=== PATIENT | female | born 1945 | race American Indian/Alaskan Native ===

== ENCOUNTER 2021-09-15 16:31 | Emergency (ER) | payer MEDICARE, MEDICAID ==
[2021-09-15] MEDS ORDERED: levETIRAcetam 1000 MG/NS 0.75% 1,000 MG/100 ML BAG IV ONE (17:06)
--- NOTE | 2021-09-15 17:11 | Emergency Department Report ---
ED Seizure HPI - General Chief Complaint: Seizure Stated Complaint: SEIZURE Time Seen by Provider: 09/15/21 16:52 Source: EMS Mode of arrival: Stretcher Limitations: Altered Mental Status - History of Present Illness Initial Comments: 76-year-old female with a past medical history of dementia, hypertension, seizures presents to the hospital after having multiple seizures prior to arrival. Granddaughter at the bedside states that patient had 3 seizures total. She had 2 at about 11:30 AM and another seizure at 3:30 PM. She states that patient is currently at her baseline mental status. She is oriented to person only. She denies pain. She denies tongue biting. She is compliant with her Vimpat and Keppra. Pt has frequent seizures Patient takes multiple medications including Keppra 500 mg and Vimpat [address] Laurent Pickering Neurologist: DR Pack - Related Data Previous Rx's Medication Instructions Recorded Last Taken Type Acetaminophen [Acetaminophen 650 mg [place] Q6H PRN #30 supp.rect 01/28/17 Unknown Rx SUPPOS] Famotidine [Pepcid] 20 mg PO DAILY tablet 01/28/17 Unknown Rx Losartan [Cozaar] 100 mg PO QDAY tablet 01/28/17 Unknown Rx metroNIDAZOLE [Flagyl TAB] 500 mg PO Q8HR tablet 01/28/17 Unknown Rx Ertapenem [INVanz] 1 gm IV QDAY 10 Days vial 01/29/17 Unknown Rx Phenytoin [Dilantin] 100 mg PO QAM #30 capsule 01/29/17 Unknown Rx Phenytoin [Dilantin] 200 mg PO QHS #30 capsule 01/29/17 Unknown Rx Alendronate Sodium [Fosamax] 70 mg PO QWEEK #4 tablet 02/02/17 Unknown Rx Aspirin [Aspirin BABY CHEW TAB] 81 mg PO DAILY #30 tab.chew 02/02/17 Unknown Rx Lisinopril/Hydrochlorothiazide 20 mg PO DAILY #30 tablet 02/02/17 Unknown Rx [Zestoretic 20-12.5 mg] Mirtazapine [Remeron] 1 tab PO HS #30 tablet 02/02/17 Unknown Rx donepeziL [Aricept] 10 mg PO QHS #30 tablet 02/02/17 Unknown Rx Allergies Allergy/AdvReac Type Severity Reaction Status Date / Time No Known Allergies Allergy Verified 01/14/16 10:24 ED Review of Systems ROS: Stated complaint: SEIZURE Other details as noted in HPI Comment: All other systems reviewed and negative ED Past Medical Hx - Past Medical History Previous Medical History?: Yes Hx Hypertension: Yes Hx Seizures: Yes Hx Dementia: Yes - Social History Smoking Status: Former Smoker - Medications Home Medications: Home Medications Medication Instructions Recorded Confirmed Last Taken Type Acetaminophen [Acetaminophen 650 mg [place] Q6H PRN #30 supp.rect 01/28/17 Unknown Rx SUPPOS] Famotidine [Pepcid] 20 mg PO DAILY tablet 01/28/17 Unknown Rx Losartan [Cozaar] 100 mg PO QDAY tablet 01/28/17 Unknown Rx metroNIDAZOLE [Flagyl TAB] 500 mg PO Q8HR tablet 01/28/17 Unknown Rx Ertapenem [INVanz] 1 gm IV QDAY 10 Days vial 01/29/17 Unknown Rx Phenytoin [Dilantin] 100 mg PO QAM #30 capsule 01/29/17 Unknown Rx Phenytoin [Dilantin] 200 mg PO QHS #30 capsule 01/29/17 Unknown Rx Alendronate Sodium [Fosamax] 70 mg PO QWEEK #4 tablet 02/02/17 Unknown Rx Aspirin [Aspirin BABY CHEW TAB] 81 mg PO DAILY #30 tab.chew 02/02/17 Unknown Rx Lisinopril/Hydrochlorothiazide 20 mg PO DAILY #30 tablet 02/02/17 Unknown Rx [Zestoretic 20-12.5 mg] Mirtazapine [Remeron] 1 tab PO HS #30 tablet 02/02/17 Unknown Rx donepeziL [Aricept] 10 mg PO QHS #30 tablet 02/02/17 Unknown Rx ED Physical Exam - General Limitations: Altered Mental Status - Other Other exam information: General: No acute distress Head: Atraumatic Eyes: normal appearance ENT: Moist mucous membranes Neck: Normal appearance, no midline tenderness Chest: Clear to auscultation bilaterally CV: Regular rate and rhythm Abdomen: Soft, normal bowel sounds, nontender, nondistended, no rebound or guarding Back: Normal inspection Extremity: Normal inspection, full range of motion Neuro: Alert O x 1, speech clear, equal handgrip. Equal leg strength Psych: Appropriate behavior Skin: No rash ED Course Vital Signs 09/15/21 09/15/21 09/15/21 16:35 16:59 17:00 Temperature 98.7 F Pulse Rate 76 78 75 Respiratory 16 21 Rate Blood Pressure 165/78 Blood Pressure 145/79 [Left] O2 Sat by Pulse 98 95 97 Oximetry 09/15/21 09/15/21 09/15/21 17:15 17:31 17:45 Temperature Pulse Rate 75 80 78 Respiratory 13 20 19 Rate Blood Pressure 165/78 165/78 165/78 Blood Pressure [Left] O2 Sat by Pulse 96 97 99 Oximetry 09/15/21 09/15/21 09/15/21 18:39 18:40 18:41 Temperature Pulse Rate 71 70 Respiratory 20 17 Rate Blood Pressure 151/63 Blood Pressure [Left] O2 Sat by Pulse 98 98 99 Oximetry 09/15/21 19:20 Temperature 98.4 F Pulse Rate 67 Respiratory 13 Rate Blood Pressure Blood Pressure 134/67 [Left] O2 Sat by Pulse 100 Oximetry ED Medical Decision Making - Lab Data Result diagrams: 09/15/21 17:20 09/15/21 17:20 Lab Results 09/15/21 09/15/21 09/15/21 Range/Units 17:20 17:20 18:09 WBC 5.0 (4.5-11.0) K/mm3 RBC 4.15 (3.65-5.03) M/mm3 Hgb 12.4 (10.1-14.3) gm/dl Hct 39.0 (30.3-42.9) % MCV 94 (79-97) fl MCH 30 (28-32) pg MCHC 32 (30-34) % RDW 13.2 (13.2-15.2) % Plt Count 273 (140-440) K/mm3 Lymph % (Auto) 21.4 (13.4-35.0) % [place] % (Auto) 8.2 H (0.0-7.3) % Eos % (Auto) 0.7 (0.0-4.3) % Baso % (Auto) 0.3 (0.0-1.8) % Lymph # (Auto) 1.1 L (1.2-5.4) K/mm3 [place] # (Auto) 0.4 (0.0-0.8) K/mm3 Eos # (Auto) 0.0 (0.0-0.4) K/mm3 Baso # (Auto) 0.0 (0.0-0.1) K/mm3 Seg Neutrophils % 69.4 (40.0-70.0) % Seg Neutrophils # 3.5 (1.8-7.7) K/mm3 Sodium 131 L (137-145) mmol/L Potassium 4.7 (3.6-5.0) mmol/L Chloride 92.0 L (98-107) mmol/L Carbon Dioxide 25 (22-30) mmol/L Anion Gap 19 mmol/L BUN 17 (7-17) mg/dL Creatinine 1.0 (0.6-1.2) mg/dL Estimated GFR > 60 ml/min BUN/Creatinine Ratio 17 % Glucose 110 H (65-100) mg/dL Calcium 9.8 (8.4-10.2) mg/dL Magnesium 1.90 (1.7-2.3) mg/dL - EKG Data -: EKG Interpreted by Dc EKG shows normal: sinus rhythm, intervals (QTC 425), QRS complexes (QRS duration 81), ST-T waves (No STEMI. LVH) Rate: normal - EKG Data When compared to previous EKG there are: previous EKG unavailable - Radiology Data Radiology results: report reviewed CT head/brain wo con INDICATION / CLINICAL INFORMATION: 76 years Female; dementia, multiple seizures. TECHNIQUE: Routine CT head without contrast. All CT scans at this location are performed using CT dose reduction for ALARA by means of automated exposure control. COMPARISON: The study is compared to previous CT of 01/11/2017. FINDINGS: BRAIN / INTRACRANIAL CONTENTS: There is extensive cerebral white matter disease most consistent with microvascular angiopathy. There is moderate cerebral and cerebellar atrophy with mild prominence of the ventricular system. There are foci of calcification within the basal ganglia bilaterally. There is no clear CT evidence of acute intracranial hemorrhage or significant mass effect. ORBITS: No significant abnormality of visualized orbits. SINUSES / MASTOIDS: The paranasal sinuses are pneumatized. Hypertrophic changes are noted along the visualized inferior maxillary bilaterally. CRANIOCERVICAL JUNCTION: No significant abnormality. ADDITIONAL FINDINGS: None. IMPRESSION: 1. There is microvascular angiopathy and cerebral atrophy as described without clear CT evidence of acute intracranial hemorrhage. - Medical Decision Making 76-year-old female with seizure disorder presents to the hospital after having multiple seizures today. States compliant with medication. Patient provided extra dose of Keppra 1 g while in the ED. CT head unremarkable. Labs unremarkable with exception of mild hyponatremia. Patient does take hydrochlorothiazide and has a history of lower sodium levels in the past as per medical record review. patient received 500 mL of normal saline prior to discharge. Critical Care Time: No Critical care attestation.: If time is entered above; I have spent that time in minutes in the direct care of this critically ill patient, excluding procedure time. ED Disposition Clinical Impression: Breakthrough seizure, Hyponatremia Disposition: HOME / SELF CARE / HOMELESS Is pt being admited?: No Does the pt Need Aspirin: No Condition: Stable Instructions: Epilepsy, [id number] Additional Instructions: Continue current medication as prescribed. Follow-up with your doctor or doctor/clinic provided. Return if symptoms worsen as indicated by your discharge instructions. Referrals: PRIMARY CAREMD [Primary Care Provider] - 3-5 Days ALEXANDRU PACK MD [Staff Physician] - 3-5 Days
[2021-09-15 17:38] LABS: Basophils % (Auto) 0.3 % (0.0-1.8); Eosinophils % (Auto) 0.7 % (0.0-4.3); Hemoglobin 12.4 gm/dl (10.1-14.3); Lymphocytes # (Auto) 1.1 K/mm3 (1.2-5.4); Lymphocytes % (Auto) 21.4 % (13.4-35.0); Mean Corpuscular HGB Conc 32 % (30-34); Mean Corpuscular Volume 94 fl (79-97); Monocytes # (Auto) 0.4 K/mm3 (0.0-0.8); Monocytes % (Auto) 8.2 % (0.0-7.3); Platelet Count 273 K/mm3 (140-440); Red Blood Count 4.15 M/mm3 (3.65-5.03); Red Cell Distribution Width 13.2 % (13.2-15.2)
[2021-09-15 17:50] LABS: BUN/Creatinine Ratio 17; Blood Urea Nitrogen 17 mg/dL (7-17); Calcium 9.8 mg/dL (8.4-10.2); Hemolysis Index 19
[2021-09-15] MEDS ORDERED: SODIUM CHLORIDE 0.9% 500 ML 500 ML IV ONE (18:06)
--- NOTE | 2021-09-15 19:35 | Cat Scan Report ---
CT head/brain wo con INDICATION / CLINICAL INFORMATION: 76 years Female; dementia, multiple seizures. TECHNIQUE: Routine CT head without contrast. All CT scans at this location are performed using CT dos e reduction for ALARA by means of automated exposure control. COMPARISON: The study is compared to previous CT of 01/11/2017. FINDINGS: BRAIN / INTRACRANIAL CONTENTS: There is extensive cerebral white matter disease most consistent with microvascular angiopathy. There is moderate cerebral and cerebellar atrophy with mild prominence of t he ventricular system. There are foci of calcification within the basal ganglia bilaterally. There is no clear CT evidence of acute intracranial hemorrhage or significant mass effect. ORBITS: No significant abnormality of visualized orbits. SINUSES / MASTOIDS: The paranasal sinuses are pneumatized. Hypertrophic changes are noted along the v isualized inferior maxillary bilaterally. CRANIOCERVICAL JUNCTION: No significant abnormality. ADDITIONAL FINDINGS: None. IMPRESSION: 1. There is microvascular angiopathy and cerebral atrophy as described without clear CT evidence of a cute intracranial hemorrhage. Signer Name: Laurent Marrufo MD Signed: 09/15/2021 7:30 PM Workstation Name: [id number]
[2021-09-15 21:21] VITALS: BP 153/72
--- NOTE | 2021-09-16 18:35 | Electrocardiograph Report ---
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
== END 2021-09-15 20:30 | disposition home or self-care (01) ==
LOC: ED 16:31
DX: R56.9 Unspecified convulsions (principal); E87.1 Hypo-osmolality and hyponatremia; I10 Essential (primary) hypertension; F03.90 Unspecified dementia, unspecified severity, without behavioral disturbance, psychotic disturbance, mood disturbance, and anxiety; Z87.891 Personal history of nicotine dependence
CPT/HCPCS: 36415; 70450; 80048; 83735; 85025; 93005; 96374; 99284; J1953; J7040

== ENCOUNTER 2022-02-13 21:20 | Emergency (ER) | payer MEDICARE ==
[2022-02-13 21:51] VITALS: BP 163/72
[2022-02-13] MEDS ORDERED: SODIUM CHLORIDE 0.9% 1000 ML 1,000 ML IV ONE (22:05)
[2022-02-13] MEDS ORDERED: levETIRAcetam 500 MG in DEXTROSE 5% IN WATER 100 ML IV ONE (22:05)
--- NOTE | 2022-02-13 22:34 | XRay Report ---
CHEST 1 VIEW 02/13/2022 10:16 PM INDICATION / CLINICAL INFORMATION: Dyspnea. COMPARISON: One view of the chest from 02/01/2017 FINDINGS: SUPPORT DEVICES: None. HEART / MEDIASTINUM: Calcified left hilar nodes versus left perihilar calcified granulomas are noted. No other significant abnormality. LUNGS / PLEURA: Unchanged left midlung calcified granuloma. There is probable bibasilar atelectasis. There is biapical scarring. Otherwise clear lungs. No significant pleural effusion. No pneumothorax. ADDITIONAL FINDINGS: No significant additional findings. IMPRESSION: 1. Probable mild bibasilar atelectasis without other acute findings. 2. Additional findings as above. Signer Name: Jim Novoa MD Signed: 02/13/2022 10:30 PM Workstation Name: [id number]
[2022-02-13 23:17] LABS: Basophils % (Auto) 0.2 % (0.0-1.8); Eosinophils % (Auto) 0.6 % (0.0-4.3); Hematocrit 37.2 % (30.3-42.9); Hemoglobin 12.3 gm/dl (10.1-14.3); Lymphocytes # (Auto) 1.1 K/mm3 (1.2-5.4); Lymphocytes % (Auto) 20.5 % (13.4-35.0); Mean Corpuscular HGB Conc 33 % (30-34); Mean Corpuscular Volume 93 fl (79-97); Monocytes # (Auto) 0.5 K/mm3 (0.0-0.8); Platelet Count 242 K/mm3 (140-440); Red Cell Distribution Width 13.6 % (13.2-15.2)
[2022-02-13 23:26] LABS: Alanine Aminotransferase 10 units/L (7-56); Albumin 4.3 g/dL (3.9-5); BUN/Creatinine Ratio 21; Bilirubin,Direct < 0.2 mg/dL (0-0.2); Blood Urea Nitrogen 29 mg/dL (7-17); Calcium 9.5 mg/dL (8.4-10.2); Hemolysis Index 15
--- NOTE | 2022-02-13 23:35 | Emergency Department Report ---
ED Seizure HPI - General Chief Complaint: Seizure Stated Complaint: SEIZURES Time Seen by Provider: 02/13/22 22:05 Source: patient, EMS Mode of arrival: Stretcher Limitations: No Limitations, Other - History of Present Illness Initial Comments: EMS recieved report from patient's family that patient had seizure while at home that lasted about 3 minutes. Pt alert with forgetfulness, poor historian. MD Complaint: seizure -: Gradual, hour(s) Description of Episode: loss of consciousness, tonic-clonic movement Witnessed:: Yes Trauma: No Place: home Associated Symptoms: denies: denies other symptoms, chest pain, confusion, cough - Related Data Previous Rx's Medication Instructions Recorded Last Taken Type Acetaminophen [Acetaminophen 650 mg [place] Q6H PRN #30 supp.rect 01/28/17 Unknown Rx SUPPOS] Famotidine [Pepcid] 20 mg PO DAILY tablet 01/28/17 Unknown Rx Losartan [Cozaar] 100 mg PO QDAY tablet 01/28/17 Unknown Rx metroNIDAZOLE [Flagyl TAB] 500 mg PO Q8HR tablet 01/28/17 Unknown Rx Ertapenem [INVanz] 1 gm IV QDAY 10 Days vial 01/29/17 Unknown Rx Phenytoin [Dilantin] 100 mg PO QAM #30 capsule 01/29/17 Unknown Rx Phenytoin [Dilantin] 200 mg PO QHS #30 capsule 01/29/17 Unknown Rx Alendronate Sodium [Fosamax] 70 mg PO QWEEK #4 tablet 02/02/17 Unknown Rx Aspirin [Aspirin BABY CHEW TAB] 81 mg PO DAILY #30 tab.chew 02/02/17 Unknown Rx Lisinopril/Hydrochlorothiazide 20 mg PO DAILY #30 tablet 02/02/17 Unknown Rx [Zestoretic 20-12.5 mg] Mirtazapine [Remeron] 1 tab PO HS #30 tablet 02/02/17 Unknown Rx donepeziL [Aricept] 10 mg PO QHS #30 tablet 02/02/17 Unknown Rx Allergies Allergy/AdvReac Type Severity Reaction Status Date / Time No Known Allergies Allergy Verified 11/07/15 10:24 ED Review of Systems ROS: Stated complaint: SEIZURES Other details as noted in HPI Constitutional: denies: chills, fever Eyes: denies: eye pain, eye discharge, vision change ENT: denies: ear pain, throat pain Respiratory: denies: cough, shortness of breath, wheezing Cardiovascular: denies: chest pain, palpitations Endocrine: no symptoms reported Gastrointestinal: denies: abdominal pain, nausea, diarrhea Genitourinary: denies: urgency, dysuria, discharge Musculoskeletal: denies: back pain, joint swelling, arthralgia Skin: denies: rash, lesions Neurological: denies: headache, weakness, paresthesias Psychiatric: denies: anxiety, depression Hematological/Lymphatic: denies: easy bleeding, easy bruising ED Past Medical Hx - Past Medical History Hx Hypertension: Yes Hx Seizures: Yes Hx Dementia: Yes - Social History Smoking Status: Former Smoker - Medications Home Medications: Home Medications Medication Instructions Recorded Confirmed Last Taken Type Acetaminophen [Acetaminophen 650 mg [place] Q6H PRN #30 supp.rect 01/28/17 Unknown Rx SUPPOS] Famotidine [Pepcid] 20 mg PO DAILY tablet 01/28/17 Unknown Rx Losartan [Cozaar] 100 mg PO QDAY tablet 01/28/17 Unknown Rx metroNIDAZOLE [Flagyl TAB] 500 mg PO Q8HR tablet 01/28/17 Unknown Rx Ertapenem [INVanz] 1 gm IV QDAY 10 Days vial 01/29/17 Unknown Rx Phenytoin [Dilantin] 100 mg PO QAM #30 capsule 01/29/17 Unknown Rx Phenytoin [Dilantin] 200 mg PO QHS #30 capsule 01/29/17 Unknown Rx Alendronate Sodium [Fosamax] 70 mg PO QWEEK #4 tablet 02/02/17 Unknown Rx Aspirin [Aspirin BABY CHEW TAB] 81 mg PO DAILY #30 tab.chew 02/02/17 Unknown Rx Lisinopril/Hydrochlorothiazide 20 mg PO DAILY #30 tablet 02/02/17 Unknown Rx [Zestoretic 20-12.5 mg] Mirtazapine [Remeron] 1 tab PO HS #30 tablet 02/02/17 Unknown Rx donepeziL [Aricept] 10 mg PO QHS #30 tablet 02/02/17 Unknown Rx ED Physical Exam - General Limitations: Other General appearance: alert, in no apparent distress - Head Head exam: Present: atraumatic, normocephalic - Eye Eye exam: Present: normal appearance - ENT ENT exam: Present: mucous membranes moist - Neck Neck exam: Present: normal inspection - Respiratory Respiratory exam: Present: normal lung sounds bilaterally. Absent: respiratory distress - Cardiovascular Cardiovascular Exam: Present: regular rate, normal rhythm. Absent: systolic murmur, diastolic murmur, rubs, gallop - GI/Abdominal GI/Abdominal exam: Present: soft, normal bowel sounds - Extremities Exam Extremities exam: Present: normal inspection - Back Exam Back exam: Present: normal inspection - Neurological Exam Neurological exam: Present: alert, oriented X3 - Psychiatric Psychiatric exam: Present: normal affect, normal mood - Skin Skin exam: Present: warm, dry, intact, normal color. Absent: rash ED Course Vital Signs 02/13/22 21:50 Temperature 98.9 F Pulse Rate 97 H Blood Pressure 163/72 [Left] O2 Sat by Pulse 96 Oximetry ED Medical Decision Making - Lab Data Result diagrams: 02/13/22 22:24 02/13/22 22:24 - Radiology Data Radiology results: report reviewed, image reviewed - Medical Decision Making WORK UP NEGATIVE BACK TO BASLINE , VSS NO DISTRESS Critical care attestation.: If time is entered above; I have spent that time in minutes in the direct care of this critically ill patient, excluding procedure time. ED Disposition Clinical Impression: Seizure disorder Disposition: 01 HOME / SELF CARE / HOMELESS Is pt being admited?: No Does the pt Need Aspirin: No Condition: Stable Instructions: Epilepsy, [id number]
--- NOTE | 2022-02-15 10:41 | Electrocardiograph Report ---
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
== END 2022-02-14 01:21 | disposition home or self-care (01) ==
LOC: ED 21:20
DX: G40.909 Epilepsy, unspecified, not intractable, without status epilepticus (principal); I10 Essential (primary) hypertension; Z87.891 Personal history of nicotine dependence; Z79.899 Other long term (current) drug therapy
CPT/HCPCS: 36415; 71045; 80053; 80076; 85025; 93005; 96361; 96374; 99284; J1953; J7030; J7060

== ENCOUNTER 2022-03-12 16:52 | Inpatient (IN) | payer MEDICAID, MEDICARE ==
[2022-03-12] MEDS ORDERED: SODIUM CHLORIDE 0.9% 1000 ML 1,000 ML IV ONE (17:20)
[2022-03-12] MEDS ORDERED: PIPERACIL/TAZOBACTA 4.5/NS 100 4.5 GM/100 ML VIAL IV ONE (17:20)
[2022-03-12] MEDS ORDERED: ACETAMINOPHEN 325 MG TAB PO ONE (17:39)
--- NOTE | 2022-03-12 17:51 | XRay Report ---
CHEST 1 VIEW INDICATION: weakness. COMPARISON: 02/13/2022 FINDINGS: SUPPORT DEVICES: None. HEART: Within normal limits. LUNGS/PLEURA: Aside from a couple scattered calcified granulomata, the lungs are clear. ADDITIONAL FINDINGS: None. IMPRESSION: 1. No acute findings. Signer Name: Sherman Mitchell MD Signed: 03/12/2022 5:46 PM Workstation Name: [id number]
[2022-03-12 18:03] LABS: Basophils % (Auto) 0.1 % (0.0-1.8); Eosinophils % (Auto) 0.1 % (0.0-4.3); Hematocrit 37.9 % (30.3-42.9); Hemoglobin 12.7 gm/dl (10.1-14.3); Lymphocytes # (Auto) 0.6 K/mm3 (1.2-5.4); Lymphocytes % (Auto) 8.8 % (13.4-35.0); Mean Corpuscular HGB Conc 34 % (30-34); Mean Corpuscular Volume 94 fl (79-97); Monocytes # (Auto) 0.6 K/mm3 (0.0-0.8); Monocytes % (Auto) 9.1 % (0.0-7.3); Platelet Count 238 K/mm3 (140-440); Red Blood Count 4.05 M/mm3 (3.65-5.03); Red Cell Distribution Width 13.6 % (13.2-15.2)
[2022-03-12] MEDS ORDERED: ACETAMINOPHEN 650 MG RECT SUPP PR ONE (18:05)
--- NOTE | 2022-03-12 18:46 | Cat Scan Report ---
CT head/brain wo con INDICATION / CLINICAL INFORMATION: 77 years Female; generalized weakness. TECHNIQUE: Routine CT head without contrast. All CT scans at this location are performed using CT dos e reduction for ALARA by means of automated exposure control. COMPARISON: None. FINDINGS: BRAIN / INTRACRANIAL CONTENTS: No acute hemorrhage, mass effect, midline shift, hydrocephalus, or acu te, large territorial infarct. [id number], diffuse cerebral and cerebellar atrophy. There are [id number] areas of decreased attenuation in the white matter of the cerebral hemisph eres, as well as the gangliocapsular regions. These are nonspecific findings and may be related to mi croangiopathy (hypertension, diabetes, atherosclerosis), given the patient's age. It might be difficu lt to evaluate for small areas of ischemia without diffusion imaging by MRI. CRANIOCERVICAL JUNCTION: No significant abnormality. ORBITS: No significant abnormality of visualized orbits. SINUSES / MASTOIDS: Mild to moderate mucosal thickening seen in the mastoids. ADDITIONAL FINDINGS: Poor dentition noted. Cate maxillare noted bilaterally along the posterior molar s. Probable radicular cyst associated with an incisor root along the maxillary alveolar ridge on the lef t. Atherosclerotic disease is seen in the anterior and posterior circulation. Bilateral temporal mandibular joint disease noted. IMPRESSION: 1. No focal mass, hemorrhage, hydrocephalus, or acute, large territorial infarct. Signer Name: Jeb Sanz MD, III Signed: 03/12/2022 6:42 PM Workstation Name: [id number]
[2022-03-12 19:04] LABS: Albumin 4.2 g/dL (3.9-5); BUN/Creatinine Ratio 17; Blood Urea Nitrogen 22 mg/dL (7-17); Calcium 9.5 mg/dL (8.4-10.2); Hemolysis Index 53
--- NOTE | 2022-03-12 19:09 | Emergency Department Report ---
ED General Adult HPI - General Chief complaint: Weakness Stated complaint: WEAKNESS/VOMITING Time Seen by Provider: 03/12/22 17:18 Source: EMS Mode of arrival: Stretcher Limitations: No Limitations - History of Present Illness Initial comments: patient presents from [place] 2/ fever and generalized weakness. Patient with hx of dementia and is AAO x 2 (person and place; @ baseline). Patient is not a reliable historian. Patient denies any WILHELM, CP, SOB, numbness, weakness, abd pain, back pain, dysuria, frequency, urgency. Severity scale (0 -10): 0 - Related Data Previous Rx's Medication Instructions Recorded Last Taken Type Acetaminophen [Acetaminophen 650 mg MS Q6H PRN #30 supp.rect 01/28/17 Unknown Rx SUPPOS] Famotidine [Pepcid] 20 mg PO DAILY tablet 01/28/17 Unknown Rx Losartan [Cozaar] 100 mg PO QDAY tablet 01/28/17 Unknown Rx metroNIDAZOLE [Flagyl TAB] 500 mg PO Q8HR tablet 01/28/17 Unknown Rx Ertapenem [INVanz] 1 gm IV QDAY 10 Days vial 01/29/17 Unknown Rx Phenytoin [Dilantin] 100 mg PO QAM #30 capsule 01/29/17 Unknown Rx Phenytoin [Dilantin] 200 mg PO QHS #30 capsule 01/29/17 Unknown Rx Alendronate Sodium [Fosamax] 70 mg PO QWEEK #4 tablet 02/02/17 Unknown Rx Aspirin [Aspirin BABY CHEW TAB] 81 mg PO DAILY #30 tab.chew 02/02/17 Unknown Rx Lisinopril/Hydrochlorothiazide 20 mg PO DAILY #30 tablet 02/02/17 Unknown Rx [Zestoretic 20-12.5 mg] Mirtazapine [Remeron] 1 tab PO HS #30 tablet 02/02/17 Unknown Rx donepeziL [Aricept] 10 mg PO QHS #30 tablet 02/02/17 Unknown Rx Allergies Allergy/AdvReac Type Severity Reaction Status Date / Time No Known Allergies Allergy Verified 11/07/15 10:24 ED Review of Systems ROS: Stated complaint: WEAKNESS/VOMITING Other details as noted in HPI Comment: All other systems reviewed and negative Constitutional: fever. denies: chills ED Past Medical Hx - Past Medical History Previous Medical History?: Yes Hx Hypertension: Yes Hx Seizures: Yes Hx Dementia: Yes - Social History Smoking Status: Never Smoker - Medications Home Medications: Home Medications Medication Instructions Recorded Confirmed Last Taken Type Acetaminophen [Acetaminophen 650 mg MS Q6H PRN #30 supp.rect 01/28/17 Unknown Rx SUPPOS] Famotidine [Pepcid] 20 mg PO DAILY tablet 01/28/17 Unknown Rx Losartan [Cozaar] 100 mg PO QDAY tablet 01/28/17 Unknown Rx metroNIDAZOLE [Flagyl TAB] 500 mg PO Q8HR tablet 01/28/17 Unknown Rx Ertapenem [INVanz] 1 gm IV QDAY 10 Days vial 01/29/17 Unknown Rx Phenytoin [Dilantin] 100 mg PO QAM #30 capsule 01/29/17 Unknown Rx Phenytoin [Dilantin] 200 mg PO QHS #30 capsule 01/29/17 Unknown Rx Alendronate Sodium [Fosamax] 70 mg PO QWEEK #4 tablet 02/02/17 Unknown Rx Aspirin [Aspirin BABY CHEW TAB] 81 mg PO DAILY #30 tab.chew 02/02/17 Unknown Rx Lisinopril/Hydrochlorothiazide 20 mg PO DAILY #30 tablet 02/02/17 Unknown Rx [Zestoretic 20-12.5 mg] Mirtazapine [Remeron] 1 tab PO HS #30 tablet 02/02/17 Unknown Rx donepeziL [Aricept] 10 mg PO QHS #30 tablet 02/02/17 Unknown Rx ED Physical Exam - General Limitations: No Limitations General appearance: alert, in no apparent distress - Head Head exam: Present: atraumatic, normocephalic - Eye Eye exam: Present: PERRL, EOMI - ENT ENT exam: Present: mucous membranes moist, other (airway patent) - Neck Neck exam: Present: other (supple; no JVD) - Respiratory Respiratory exam: Present: other (good air entry, nml I:E, CTAB, no use of ISMA) - Cardiovascular Cardiovascular Exam: Present: regular rate. Absent: rubs, gallop - GI/Abdominal GI/Abdominal exam: Present: soft, normal bowel sounds. Absent: distended, tenderness - Extremities Exam Extremities exam: Present: full ROM. Absent: tenderness - Back Exam Back exam: Present: full ROM. Absent: tenderness - Neurological Exam Neurological exam: Present: alert, CN II-XII intact, other (GCS 14/15 ([id number])). Absent: motor sensory deficit - Skin Skin exam: Present: warm, normal color ED Course Vital Signs 03/12/22 03/12/22 03/12/22 16:57 16:59 17:18 Temperature 100.4 F H Pulse Rate 104 H 105 H Respiratory 17 18 Rate Blood Pressure 165/72 Blood Pressure 142/74 [Right] O2 Sat by Pulse 97 99 Oximetry ED Medical Decision Making - Lab Data Result diagrams: 03/12/22 17:34 03/12/22 17:34 Laboratory Tests 03/12/22 03/12/22 03/12/22 17:34 17:34 17:34 WBC 6.8 RBC 4.05 Hgb 12.7 Hct 37.9 MCV 94 MCH 31 MCHC 34 RDW 13.6 Plt Count 238 Lymph % (Auto) 8.8 L [place] % (Auto) 9.1 H Eos % (Auto) 0.1 Baso % (Auto) 0.1 Lymph # (Auto) 0.6 L [place] # (Auto) 0.6 Eos # (Auto) 0.0 Baso # (Auto) 0.0 Seg Neutrophils % 81.9 H Seg Neutrophils # 5.6 Sodium 140 Potassium 4.6 Chloride 102.7 Carbon Dioxide 21 L Anion Gap 21 BUN 22 H Creatinine 1.3 H Estimated GFR 48 BUN/Creatinine Ratio 17 Glucose 115 H Lactic Acid 2.70 H* Calcium 9.5 Total Bilirubin 0.20 AST 38 ALT 15 Alkaline Phosphatase 73 Troponin T < 0.010 Total Protein 7.5 Albumin 4.2 Albumin/Globulin Ratio 1.3 Urine Color Urine Turbidity Urine pH Ur Specific [place] Urine Protein Urine Glucose (UA) Urine Ketones Urine Blood Urine Nitrite Urine Bilirubin Urine Urobilinogen Ur Leukocyte Esterase Urine WBC (Auto) Urine RBC (Auto) U Epithel Cells (Auto) Urine Yeast (Budding) 03/12/22 20:03 WBC RBC Hgb Hct MCV MCH MCHC RDW Plt Count Lymph % (Auto) [place] % (Auto) Eos % (Auto) Baso % (Auto) Lymph # (Auto) [place] # (Auto) Eos # (Auto) Baso # (Auto) Seg Neutrophils % Seg Neutrophils # Sodium Potassium Chloride Carbon Dioxide Anion Gap BUN Creatinine Estimated GFR BUN/Creatinine Ratio Glucose Lactic Acid Calcium Total Bilirubin AST ALT Alkaline Phosphatase Troponin T Total Protein Albumin Albumin/Globulin Ratio Urine Color Yellow Urine Turbidity Clear Urine pH 5.0 Ur Specific [place] 1.025 Urine Protein 100 mg/dl Urine Glucose (UA) Neg Urine Ketones Neg Urine Blood Mod Urine Nitrite Neg Urine Bilirubin Neg Urine Urobilinogen < 2.0 Ur Leukocyte Esterase Mod Urine WBC (Auto) 21.0 H Urine RBC (Auto) 17.0 U Epithel Cells (Auto) 2.0 Urine Yeast (Budding) Few CT head: no acute intracranial process CXR: no acute cardiopulmonary process EKG: HR 102, SR, nml Pr, narrow QRS, no significant ST changes in contiguous leads - Medical Decision Making Received zosyn 4.5 g IV x 1, NS 1L bolus then @ 125 m/hr, acetaminophen 650 mg MS x 1. Critical care attestation.: If time is entered above; I have spent that time in minutes in the direct care of this critically ill patient, excluding procedure time. ED Disposition Clinical Impression: Sepsis, UTI (urinary tract infection) Disposition: ADMITTED INPATIENT Is pt being admited?: Yes Does the pt Need Aspirin: No Condition: Stable Time of Disposition: 21:05 (Patient admitted to Dr. Thompson. Sign out was given by me to him.)
[2022-03-12 19:15] LABS: Alanine Aminotransferase 15 units/L (7-56)
[2022-03-12 20:42] LABS: Bilirubin,Urine NEG (Negative); Blood,Urine MOD (Negative); Color,Urine Yellow (Yellow); Urobilinogen,Urine < 2.0 mg/dL (<2.0)
[2022-03-12] MEDS ORDERED: ALBUTEROL 2.5 MG/3 ML NEBU IH PRN (21:18)
[2022-03-12] MEDS ORDERED: MORPHINE 4 MG/1 ML INJ IV PRN (21:18)
[2022-03-12] MEDS ORDERED: ACETAMINOPHEN 325 MG TAB PO PRN (21:18)
[2022-03-12] MEDS ORDERED: ONDANSETRON 4 MG/2 ML INJ IV PRN (21:18)
[2022-03-12] MEDS ORDERED: MORPHINE 2 MG/1 ML INJ IV PRN (21:18)
--- NOTE | 2022-03-12 21:27 | History and Physical Report ---
History of Present Illness Date of examination: 03/12/22 Date of admission: 03/12/22 Chief complaint: Weakness Fever Vomiting History of present illness: 77 years old female with history of hypertension, dementia seizure disorder was brought to the emergency room from al[place] because of fever and generalized weakness. Patient is not a reliable historian. Patient denies any WILHELM, CP, SOB, numbness, weakness, abd pain, back pain, dysuria, frequency, urgency. In the emergency room patient is found to have lactic acid of 2.70, WBC of 6.8, patient was found to have a UTI so going to admit the patient we will put the patient on IV fluid Zosyn 4.5 g IV every 8 hours and send the urine for culture Past History Past Medical History: hypertension, seizures, other (Dementia) Past Surgical History: No surgical history Social history: no significant social history Family history: hypertension Medications and Allergies Allergies Allergy/AdvReac Type Severity Reaction Status Date / Time No Known Allergies Allergy Verified 11/07/15 10:24 Home Medications Medication Instructions Recorded Confirmed Last Taken Type Acetaminophen [Acetaminophen 650 mg [place] Q6H PRN #30 supp.rect 01/28/17 Unknown Rx SUPPOS] Famotidine [Pepcid] 20 mg PO DAILY tablet 01/28/17 Unknown Rx Losartan [Cozaar] 100 mg PO QDAY tablet 01/28/17 Unknown Rx metroNIDAZOLE [Flagyl TAB] 500 mg PO Q8HR tablet 01/28/17 Unknown Rx Ertapenem [INVanz] 1 gm IV QDAY 10 Days vial 01/29/17 Unknown Rx Phenytoin [Dilantin] 100 mg PO QAM #30 capsule 01/29/17 Unknown Rx Phenytoin [Dilantin] 200 mg PO QHS #30 capsule 01/29/17 Unknown Rx Alendronate Sodium [Fosamax] 70 mg PO QWEEK #4 tablet 02/02/17 Unknown Rx Aspirin [Aspirin BABY CHEW TAB] 81 mg PO DAILY #30 tab.chew 02/02/17 Unknown Rx Lisinopril/Hydrochlorothiazide 20 mg PO DAILY #30 tablet 02/02/17 Unknown Rx [Zestoretic 20-12.5 mg] Mirtazapine [Remeron] 1 tab PO HS #30 tablet 02/02/17 Unknown Rx donepeziL [Aricept] 10 mg PO QHS #30 tablet 02/02/17 Unknown Rx Active Meds: Active Medications Acetaminophen (Acetaminophen 325 Mg Tab) 650 mg PO Q4H PRN PRN Reason: Pain MILD(1-3)/Fever >100.5/WILHELM Albuterol (Albuterol 2.5 Mg/3 Ml Nebu) 2.5 mg IH Q3HRT PRN PRN Reason: Shortness Of Breath Albuterol/Ipratropium (Ipratropium/Albuterol Sulfate 3 Ml Ampul.Neb) 1 ampul IH Q6HRT [facility] Aspirin (Aspirin 81 Mg Tab Chew) 81 mg PO DAILY [facility] Donepezil HCl (Donepezil 10 Mg Tab) 10 mg PO QHS [facility] Famotidine (Famotidine 20 Mg/2 Ml Inj) 20 mg IV BID [facility] Heparin Sodium (Porcine) (Heparin 5,000 Unit/1 Ml Vial) 5,000 unit SUB-Q Q12HR [facility] Dextrose/Sodium Chloride (D5/0.45ns) 1,000 mls @ 100 mls/hr IV DIRECT JAZLYN Piperacillin Sod/Tazobactam Sod (Zosyn/Ns 4.5gm/100ml) 4.5 gm in 100 mls @ 200 mls/hr IV Q8H JAZLYN; Protocol Metronidazole (Metronidazole 500 Mg Tab) 500 mg PO Q8HR JAZLYN; Protocol Miscellaneous Medication (Lisinopril/Hydrochlorothiazide [Zestoretic 20-12.5 Mg]) 20 mg PO DAILY [facility] Morphine Sulfate (Morphine 2 Mg/1 Ml Inj) 2 mg IV Q4H PRN PRN Reason: Pain, Moderate (4-6) Morphine Sulfate (Morphine 4 Mg/1 Ml Inj) 4 mg IV Q4H PRN PRN Reason: Pain , Severe (7-10) Ondansetron HCl (Ondansetron 4 Mg/2 Ml Inj) 4 mg IV Q8H PRN PRN Reason: Nausea And Vomiting Sodium Chloride (Sodium Chloride 0.9% 10 Ml Flush Syringe) 10 ml IV BID [facility] Sodium Chloride (Sodium Chloride 0.9% 10 Ml Flush Syringe) 10 ml IV PRN PRN PRN Reason: LINE FLUSH Review of Systems All systems: negative Constitutional: weakness, malaise Gastrointestinal: nausea, vomiting Exam - Constitutional Vitals: Temp Pulse Resp BP Pulse Ox 100.4 F H 105 H 18 165/72 99 03/12/22 16:59 03/12/22 17:18 03/12/22 17:18 03/12/22 17:18 03/12/22 17:18 General appearance: Present: no acute distress, well-nourished - EENT Eyes: Present: PERRL ENT: hearing intact, clear oral mucosa - Neck Neck: Present: supple, normal ROM - Respiratory Respiratory effort: normal Respiratory: bilateral: diminished - Cardiovascular Heart Sounds: Present: S1 & S2. Absent: rub, click - Extremities Extremities: pulses symmetrical, No edema Peripheral Pulses: within normal limits - Abdominal General gastrointestinal: Present: soft, non-tender, non-distended, normal bowel sounds Female genitourinary: Present: normal - Integumentary Integumentary: Present: clear, warm, dry - Musculoskeletal Musculoskeletal: gait normal, strength equal bilaterally - Neurologic Neurologic: CNII-XII intact, moves all extremities HEART Score - HEART Score Troponin: Troponin T < 0.010 ng/mL (0.00-0.029) 03/12/22 17:34 Results - Labs CBC & Chem 7: 03/12/22 17:34 03/12/22 17:34 Labs: Laboratory Last Values WBC 6.8 K/mm3 (4.5-11.0) 03/12/22 17:34 RBC 4.05 M/mm3 (3.65-5.03) 03/12/22 17:34 Hgb 12.7 gm/dl (10.1-14.3) 03/12/22 17:34 Hct 37.9 % (30.3-42.9) 03/12/22 17:34 MCV 94 fl (79-97) 03/12/22 17:34 MCH 31 pg (28-32) 03/12/22 17:34 MCHC 34 % (30-34) 03/12/22 17:34 RDW 13.6 % (13.2-15.2) 03/12/22 17:34 Plt Count 238 K/mm3 (140-440) 03/12/22 17:34 Lymph % (Auto) 8.8 % (13.4-35.0) L 03/12/22 17:34 [place] % (Auto) 9.1 % (0.0-7.3) H 03/12/22 17:34 Eos % (Auto) 0.1 % (0.0-4.3) 03/12/22 17:34 Baso % (Auto) 0.1 % (0.0-1.8) 03/12/22 17:34 Lymph # (Auto) 0.6 K/mm3 (1.2-5.4) L 03/12/22 17:34 [place] # (Auto) 0.6 K/mm3 (0.0-0.8) 03/12/22 17:34 Eos # (Auto) 0.0 K/mm3 (0.0-0.4) 03/12/22 17:34 Baso # (Auto) 0.0 K/mm3 (0.0-0.1) 03/12/22 17:34 Seg Neutrophils % 81.9 % (40.0-70.0) H 03/12/22 17:34 Seg Neutrophils # 5.6 K/mm3 (1.8-7.7) 03/12/22 17:34 Sodium 140 mmol/L (137-145) 03/12/22 17:34 Potassium 4.6 mmol/L (3.6-5.0) 03/12/22 17:34 Chloride 102.7 mmol/L (98-107) 03/12/22 17:34 Carbon Dioxide 21 mmol/L (22-30) L 03/12/22 17:34 Anion Gap 21 mmol/L 03/12/22 17:34 BUN 22 mg/dL (7-17) H 03/12/22 17:34 Creatinine 1.3 mg/dL (0.6-1.2) H 03/12/22 17:34 Estimated GFR 48 ml/min 03/12/22 17:34 BUN/Creatinine Ratio 17 % 03/12/22 17:34 Glucose 115 mg/dL (65-100) H 03/12/22 17:34 Lactic Acid 2.70 mmol/L (0.7-2.0) H* 03/12/22 17:34 Calcium 9.5 mg/dL (8.4-10.2) 03/12/22 17:34 Total Bilirubin 0.20 mg/dL (0.1-1.2) 03/12/22 17:34 AST 38 units/L (5-40) 03/12/22 17:34 ALT 15 units/L (7-56) 03/12/22 17:34 Alkaline Phosphatase 73 units/L (35-129) 03/12/22 17:34 Troponin T < 0.010 ng/mL (0.00-0.029) 03/12/22 17:34 Total Protein 7.5 g/dL (6.3-8.2) 03/12/22 17:34 Albumin 4.2 g/dL (3.9-5) 03/12/22 17:34 Albumin/Globulin Ratio 1.3 % 03/12/22 17:34 Urine Color Yellow (Yellow) 03/12/22 20:03 Urine Turbidity Clear (Clear) 03/12/22 20:03 Urine pH 5.0 (5.0-7.0) 03/12/22 20:03 Ur Specific [place] 1.025 (1.003-1.030) 03/12/22 20:03 Urine Protein 100 mg/dl mg/dL (Negative) 03/12/22 20:03 Urine Glucose (UA) Neg mg/dL (Negative) 03/12/22 20:03 Urine Ketones Neg mg/dL (Negative) 03/12/22 20:03 Urine Blood Mod (Negative) 03/12/22 20:03 Urine Nitrite Neg (Negative) 03/12/22 20:03 Urine Bilirubin Neg (Negative) 03/12/22 20:03 Urine Urobilinogen < 2.0 mg/dL (<2.0) 03/12/22 20:03 Ur Leukocyte Esterase Mod (Negative) 03/12/22 20:03 Urine WBC (Auto) 21.0 /HPF (0.0-6.0) H 03/12/22 20:03 Urine RBC (Auto) 17.0 /HPF (0.0-6.0) 03/12/22 20:03 U Epithel Cells (Auto) 2.0 /HPF (0-13.0) 03/12/22 20:03 Urine Yeast (Budding) Few /HPF 03/12/22 20:03 - Imaging and Cardiology Chest x-ray: report reviewed Assessment and Plan VTE prophylaxis?: Chemical Plan of care discussed with patient/family: Yes - Patient Problems (1) Sepsis Current Visit: Yes Status: Acute Plan to address problem: Admit the patient to the medical floor. D5 half-normal saline at the rate of 100 cc/h. Zosyn 4.5 g IV every 8 hours. We do the blood culture and urine culture. Recheck CBC BMP in the morning (2) Acute metabolic encephalopathy Current Visit: Yes Status: Acute Plan to address problem: Metabolic encephalopathy secondary to UTI and dementia. D5 half-normal saline at the rate of 100 cc/h. Zosyn 4.5 g IV every 8 hours. We do the blood culture and urine culture. Recheck CBC BMP in the morning (3) UTI (urinary tract infection) Current Visit: Yes Status: Acute Plan to address problem: Zosyn 4.5 g IV every 8 hours. We do the blood culture and urine culture. Re check CBC BMP in the morning (4) Hypertension Current Visit: No Status: Acute Plan to address problem: Hydralazine 10 mg IV every 6 hours as needed. We will continue the home medication (5) Seizure disorder Current Visit: No Status: Acute Plan to address problem: Stable. We continue the home medication. Outpatient follow-up with neurology (6) DVT prophylaxis Current Visit: Yes Status: Acute Plan to address problem: Heparin 5000 units subcu every 12 hours for DVT prophylaxis. Pepcid 20 mg IV every 12 hours for GI prophylaxis. Patient is a full code
[2022-03-12] MEDS ORDERED: PIPERACIL/TAZOBACTA 4.5/NS 100 4.5 GM/100 ML VIAL IV SCH (22:00)
[2022-03-12] MEDS: HEPARIN 5,000 UNIT/1 ML VIAL SUB-Q SCH (22:00)
[2022-03-12] MEDS ORDERED: FAMOTIDINE 20 MG/2 ML INJ IV SCH ×2 (22:00)
[2022-03-12] MEDS: metroNIDAZOLE 500 MG TAB PO SCH (22:00)
[2022-03-12] MEDS: DONEPEZIL 10 MG TAB PO SCH (22:00)
[2022-03-13] MEDS: MIRTAZAPINE 15 MG TAB PO SCH ×2 (00:36→21:44)
[2022-03-13] MEDS: D5W/0.45% NACL 1,000 ML IV SCH ×2 (01:44→13:36)
[2022-03-13] MEDS ORDERED: PIPERACILLIN/TAZOBACTAM 3.375 3.375 GM/50 ML BAG IV SCH (02:00)
[2022-03-13] MEDS: IPRATROPIUM/ALBUTEROL SULFATE 3 ML AMPUL.NEB IH SCH ×2 (05:05→08:16)
[2022-03-13 05:28] LABS: Hemoglobin 11.5 gm/dl (10.1-14.3)
[2022-03-13 05:36] LABS: Hematocrit 38.2 % (30.3-42.9); Mean Corpuscular HGB Conc 34 % (30-34); Mean Corpuscular Volume 93 fl (79-97); Platelet Count 135 K/mm3 (140-440); Red Blood Count 4.11 M/mm3 (3.65-5.03); Red Cell Distribution Width 13.8 % (13.2-15.2)
[2022-03-13] MEDS: metroNIDAZOLE 500 MG TAB PO SCH (06:00)
[2022-03-13 06:53] LABS: Calcium 8.5 mg/dL (8.4-10.2)
--- NOTE | 2022-03-13 08:51 | Progress Note ---
Assessment and Plan Assessment and plan: --Sepsis; Criteria; fever, tachycardia, lactic acidosis, UA consistent with UTI and encephalopathy IV fluids, trend lactic acidosis, Zosyn 4.5 g IV every 8 hours. Follow urine and blood cultures --Acute toxic metabolic encephalopathy Metabolic encephalopathy secondary to UTI and dementia. D5 half-normal saline at the rate of 100 cc/h. Zosyn 4.5 g IV every 8 hours. We do the blood culture and urine culture. Recheck CBC BMP in the morning -- UTI (urinary tract infection) Empiric antibiotic Zosyn 4.5 g IV every 8 hours. Follow blood cultures, urine cultures, continue IV fluids Supportive care --Acute kidney injury; Vasomotor nephropathy Gentle hydration, closely monitor renal function, avoid nephrotoxin Consult nephrology if no improvement, renal dosing of medications Renal ultrasound if no improvement -- Hypertension Continue current antihypertensives and as needed hydralazine Closely monitor blood pressures --History of seizure disorder Seizure precautions, continue antiepileptic medications, neurology evaluation if needed Patient would follow-up with private neurologist upon discharge Do not drive until cleared by neurologist -- DVT prophylaxis Heparin 5000 units subcu every 12 hours for DVT prophylaxis. Pepcid 20 mg IV every 12 hours for GI prophylaxis. Patient is a full code Closely monitor the patient and adjust the management as needed Plan of care reviewed with the patient and her nurse History Interval history: I have seen and examined the patient at the bedside patient's patient's chart and medications reviewed No new events reported by the nursing Patient is febrile and tachycardic with lactic acidosis Vital signs noted Hospitalist Physical - Constitutional Vitals: Temp Pulse Resp BP Pulse Ox 97.7 F 82 18 133/63 98 03/13/22 05:05 03/13/22 05:14 03/13/22 05:14 03/13/22 05:05 03/13/22 08:02 General appearance: Present: mild distress, well-nourished, other (Febrile) - EENT Eyes: Present: PERRL, EOM intact - Neck Neck: Present: supple, normal ROM - Respiratory Respiratory effort: normal Respiratory: bilateral: diminished, negative: rales, rhonchi, wheezing - Cardiovascular Rhythm: regular Heart Sounds: Present: S1 & S2 - Extremities Extremities: no ischemia, No edema - Abdominal General gastrointestinal: soft, non-tender, non-distended, normal bowel sounds - Integumentary Integumentary: Present: clear, warm - Psychiatric Psychiatric: appropriate mood/affect, cooperative - Neurologic Neurologic: CNII-XII intact, moves all extremities HEART Score - HEART Score Troponin: Troponin T < 0.010 ng/mL (0.00-0.029) 03/12/22 17:34 Results - Labs CBC & Chem 7: 03/13/22 04:44 03/13/22 04:44 Labs: Laboratory Last Values WBC 10.3 K/mm3 (4.5-11.0) 03/13/22 04:44 RBC 4.11 M/mm3 (3.65-5.03) 03/13/22 04:44 Hgb 11.5 gm/dl (10.1-14.3) 03/13/22 04:44 Hct 38.2 % (30.3-42.9) 03/13/22 04:44 MCV 93 fl (79-97) 03/13/22 04:44 MCH 32 pg (28-32) 03/13/22 04:44 MCHC 34 % (30-34) 03/13/22 04:44 RDW 13.8 % (13.2-15.2) 03/13/22 04:44 Plt Count 135 K/mm3 (140-440) L 03/13/22 04:44 Lymph % (Auto) Shift Supervisor Melting 03/13/22 04:44 [place] % (Auto) Shift Supervisor Melting 03/13/22 04:44 Eos % (Auto) Shift Supervisor Melting 03/13/22 04:44 Baso % (Auto) Shift Supervisor Melting 03/13/22 04:44 Lymph # (Auto) Shift Supervisor Melting 03/13/22 04:44 [place] # (Auto) Shift Supervisor Melting 03/13/22 04:44 Eos # (Auto) Shift Supervisor Melting 03/13/22 04:44 Baso # (Auto) Shift Supervisor Melting 03/13/22 04:44 Seg Neutrophils % Shift Supervisor Melting 03/13/22 04:44 Seg Neutrophils # Shift Supervisor Melting 03/13/22 04:44 Sodium 139 mmol/L (137-145) 03/13/22 04:44 Potassium 3.9 mmol/L (3.6-5.0) 03/13/22 04:44 Chloride 60.0 mmol/L (98-107) L 03/13/22 04:44 Carbon Dioxide 14 mmol/L (22-30) L D 03/13/22 04:44 Anion Gap 69 mmol/L 03/13/22 04:44 BUN 21 mg/dL (7-17) H 03/13/22 04:44 Creatinine 1.3 mg/dL (0.6-1.2) H 03/13/22 04:44 Estimated GFR 48 ml/min 03/13/22 04:44 BUN/Creatinine Ratio 16 % 03/13/22 04:44 Glucose 129 mg/dL (65-100) H 03/13/22 04:44 Lactic Acid 1.10 mmol/L (0.7-2.0) 03/13/22 00:06 Calcium 8.5 mg/dL (8.4-10.2) 03/13/22 04:44 Total Bilirubin 0.20 mg/dL (0.1-1.2) 03/12/22 17:34 AST 38 units/L (5-40) 03/12/22 17:34 ALT 15 units/L (7-56) 03/12/22 17:34 Alkaline Phosphatase 73 units/L (35-129) 03/12/22 17:34 Troponin T < 0.010 ng/mL (0.00-0.029) 03/12/22 17:34 Total Protein 7.5 g/dL (6.3-8.2) 03/12/22 17:34 Albumin 4.2 g/dL (3.9-5) 03/12/22 17:34 Albumin/Globulin Ratio 1.3 % 03/12/22 17:34 Urine Color Yellow (Yellow) 03/12/22 20:03 Urine Turbidity Clear (Clear) 03/12/22 20:03 Urine pH 5.0 (5.0-7.0) 03/12/22 20:03 Ur Specific [place] 1.025 (1.003-1.030) 03/12/22 20:03 Urine Protein 100 mg/dl mg/dL (Negative) 03/12/22 20:03 Urine Glucose (UA) Neg mg/dL (Negative) 03/12/22 20:03 Urine Ketones Neg mg/dL (Negative) 03/12/22 20:03 Urine Blood Mod (Negative) 03/12/22 20:03 Urine Nitrite Neg (Negative) 03/12/22 20:03 Urine Bilirubin Neg (Negative) 03/12/22 20:03 Urine Urobilinogen < 2.0 mg/dL (<2.0) 03/12/22 20:03 Ur Leukocyte Esterase Mod (Negative) 03/12/22 20:03 Urine WBC (Auto) 21.0 /HPF (0.0-6.0) H 03/12/22 20:03 Urine RBC (Auto) 17.0 /HPF (0.0-6.0) 03/12/22 20:03 U Epithel Cells (Auto) 2.0 /HPF (0-13.0) 03/12/22 20:03 Urine Yeast (Budding) Few /HPF 03/12/22 20:03 Microbiology: Microbiology 03/12/22 17:34 Peripheral/Venous Blood Culture - Preliminary Culture in Progress [place]/IV: Voiding Method Incontinent Active Medications - Current Medications Current Medications: Generic Name Dose Route Start Last Admin Trade Name Freq PRN Reason Stop Dose Admin Acetaminophen 650 mg 03/12/22 21:18 Acetaminophen 325 Mg Tab PO Q4H PRN Pain MILD(1-3)/Fever >100.5/WILHELM Albuterol 2.5 mg 03/12/22 21:18 Albuterol 2.5 Mg/3 Ml Nebu IH Q3HRT PRN Shortness Of Breath Aspirin 81 mg 03/13/22 10:00 Aspirin 81 Mg Tab Chew PO DAILY JAZLYN Donepezil HCl 10 mg 03/12/22 22:00 03/12/22 22:00 Donepezil 10 Mg Tab PO 10 mg QHS JAZLYN Administration Famotidine 10 mg 03/13/22 10:00 Famotidine 10 Mg Tab PO BID JAZLYN Heparin Sodium (Porcine) 5,000 unit 03/12/22 22:00 03/12/22 22:00 Heparin 5,000 Unit/1 Ml Vial SUB-Q 5,000 unit Q12HR JAZLYN Administration Hydrochlorothiazide 12.5 mg 03/13/22 10:00 Hydrochlorothiazide 12.5 Mg Cap PO DAILY JAZLYN Dextrose/Sodium Chloride 1,000 mls @ 100 mls/hr 03/12/22 22:00 03/13/22 01:44 D5/0.45ns IV 100 mls/hr DIRECT JAZLYN Administration Piperacillin Sod/Tazobactam Sod 2.25 gm in 50 mls @ 100 mls/hr 03/13/22 10:00 Zosyn/Ns 2.25 Gm/50ml IV Q6H JAZLYN Lisinopril 20 mg 03/13/22 10:00 Lisinopril 20 Mg Tab PO DAILY JAZLYN Mirtazapine 15 mg 03/12/22 22:00 03/13/22 00:36 Mirtazapine 15 Mg Tab PO 15 mg HS JAZLYN Administration Morphine Sulfate 2 mg 03/12/22 21:18 Morphine 2 Mg/1 Ml Inj IV Q4H PRN Pain, Moderate (4-6) Morphine Sulfate 4 mg 03/12/22 21:18 Morphine 4 Mg/1 Ml Inj IV Q4H PRN Pain , Severe (7-10) Ondansetron HCl 4 mg 03/12/22 21:18 Ondansetron 4 Mg/2 Ml Inj IV Q8H PRN Nausea And Vomiting Phenytoin 100 mg 03/13/22 10:00 Phenytoin 100 Mg Capsule.Er PO QAM JAZLYN Sodium Chloride 10 ml 03/12/22 22:00 03/12/22 22:00 Sodium Chloride 0.9% 10 Ml Flush Syringe IV 10 ml BID JAZLYN Administration Sodium Chloride 10 ml 03/12/22 21:18 Sodium Chloride 0.9% 10 Ml Flush Syringe IV PRN PRN LINE FLUSH
[2022-03-13] MEDS ORDERED: NON-FORMULARY EACH (Lisinopril/Hydrochlorothiazide [Zestoretic 20-12.5 Mg] 1 EACH Tablet) PO SCH (10:00)
[2022-03-13] MEDS ORDERED: PHENYTOIN 100 MG CAPSULE.ER PO SCH (10:00)
[2022-03-13] MEDS ORDERED: FAMOTIDINE 10 MG TAB PO SCH (10:00)
[2022-03-13] MEDS: PIPERACIL-TAZO 2.25 GM/50 ML 2.25 GM/50 ML BAG IV SCH ×3 (10:00→21:42)
[2022-03-13] MEDS: HEPARIN 5,000 UNIT/1 ML VIAL SUB-Q SCH ×2 (10:09→21:45)
--- NOTE | 2022-03-13 10:12 | Electrocardiograph Report ---
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 Electronically Signed On 03-13-2022 10:12:00 EDT by Domo Duggan
[2022-03-13] MEDS: hydroCHLOROthiazide 12.5 MG CAP PO SCH (10:15)
[2022-03-13] MEDS: ASPIRIN 81 MG TAB CHEW PO SCH (10:15)
[2022-03-13] MEDS: LISINOPRIL 20 MG TAB PO SCH (10:22)
[2022-03-13] MEDS ORDERED: NON-FORMULARY EACH (Lacosamide [Vimpat] 200 MG Tablet) PO SCH (20:00)
[2022-03-13] MEDS: LACOSAMIDE 100 MG TAB PO SCH (21:43)
[2022-03-13] MEDS: levETIRAcetam 500 MG TAB PO SCH (21:44)
[2022-03-13] MEDS: DONEPEZIL 10 MG TAB PO SCH (21:47)
[2022-03-13] MEDS ORDERED: NON-FORMULARY EACH (Levetiracetam [Keppra Tab] 1,000 MG Tablet) PO SCH (22:00)
[2022-03-14] MEDS: PIPERACIL-TAZO 2.25 GM/50 ML 2.25 GM/50 ML BAG IV SCH ×2 (05:44→10:55)
[2022-03-14] MEDS: hydroCHLOROthiazide 12.5 MG CAP PO SCH (10:53)
[2022-03-14] MEDS: ASPIRIN 81 MG TAB CHEW PO SCH (10:54)
[2022-03-14] MEDS: HEPARIN 5,000 UNIT/1 ML VIAL SUB-Q SCH ×2 (10:54→21:52)
[2022-03-14] MEDS: FOLIC ACID 1 MG TAB PO SCH (10:54)
[2022-03-14] MEDS: PANTOPRAZOLE 20 MG TAB PO SCH (10:54)
[2022-03-14] MEDS: LACOSAMIDE 100 MG TAB PO SCH ×2 (10:54→21:51)
[2022-03-14] MEDS: levETIRAcetam 500 MG TAB PO SCH ×2 (10:54→21:51)
[2022-03-14] MEDS: D5W/0.45% NACL 1,000 ML IV SCH (10:57)
[2022-03-14] MEDS: LISINOPRIL 20 MG TAB PO SCH (11:18)
--- NOTE | 2022-03-14 14:10 | Progress Note ---
Assessment and Plan Assessment and plan: --Sepsis; Criteria; fever, tachycardia, lactic acidosis, UA consistent with UTI and encephalopathy IV fluids, trend lactic acidosis, Zosyn 4.5 g IV every 8 hours. Follow urine and blood cultures --Acute toxic metabolic encephalopathy Metabolic encephalopathy secondary to UTI and dementia. D5 half-normal saline at the rate of 100 cc/h. Zosyn 4.5 g IV every 8 hours. We do the blood culture and urine culture. Recheck CBC BMP in the morning -- UTI (urinary tract infection) Empiric antibiotic Zosyn 4.5 g IV every 8 hours. Follow blood cultures, urine cultures, continue IV fluids Supportive care --Acute kidney injury; Vasomotor nephropathy Gentle hydration, closely monitor renal function, avoid nephrotoxin Consult nephrology if no improvement, renal dosing of medications Renal ultrasound if no improvement -- Hypertension Continue current antihypertensives and as needed hydralazine Closely monitor blood pressures --History of seizure disorder Seizure precautions, continue antiepileptic medications, neurology evaluation if needed Patient would follow-up with private neurologist upon discharge Do not drive until cleared by neurologist -- DVT prophylaxis Heparin 5000 units subcu every 12 hours for DVT prophylaxis. Pepcid 20 mg IV every 12 hours for GI prophylaxis. Patient is a full code Closely monitor the patient and adjust the management as needed Plan of care reviewed with the patient and her nurse History Interval history: I have seen and examined the patient at the bedside Patient's chart and medication reviewed No new events reported by the nursing Hospitalist Physical - Constitutional Vitals: Temp Pulse Resp BP Pulse Ox 98.7 F 69 14 123/57 100 03/14/22 05:38 03/14/22 11:18 03/14/22 11:16 03/14/22 11:18 03/14/22 11:16 General appearance: Present: mild distress, well-nourished, other (Febrile) - EENT Eyes: Present: PERRL, EOM intact - Neck Neck: Present: supple, normal ROM - Respiratory Respiratory effort: normal Respiratory: bilateral: diminished, negative: rales, rhonchi - Cardiovascular Rhythm: regular Heart Sounds: Present: S1 & S2 - Extremities Extremities: no ischemia, No edema - Abdominal General gastrointestinal: soft, non-tender, non-distended, normal bowel sounds - Integumentary Integumentary: Present: clear, warm - Psychiatric Psychiatric: appropriate mood/affect, cooperative - Neurologic Neurologic: CNII-XII intact, moves all extremities HEART Score - HEART Score Troponin: Troponin T < 0.010 ng/mL (0.00-0.029) 03/12/22 17:34 Results - Labs CBC & Chem 7: 03/13/22 04:44 03/13/22 04:44 Labs: Laboratory Last Values WBC 10.3 K/mm3 (4.5-11.0) 03/13/22 04:44 RBC 4.11 M/mm3 (3.65-5.03) 03/13/22 04:44 Hgb 11.5 gm/dl (10.1-14.3) 03/13/22 04:44 Hct 38.2 % (30.3-42.9) 03/13/22 04:44 MCV 93 fl (79-97) 03/13/22 04:44 MCH 32 pg (28-32) 03/13/22 04:44 MCHC 34 % (30-34) 03/13/22 04:44 RDW 13.8 % (13.2-15.2) 03/13/22 04:44 Plt Count 135 K/mm3 (140-440) L 03/13/22 04:44 Lymph % (Auto) Route Delivery Driver 03/13/22 04:44 [place] % (Auto) Route Delivery Driver 03/13/22 04:44 Eos % (Auto) Route Delivery Driver 03/13/22 04:44 Baso % (Auto) Route Delivery Driver 03/13/22 04:44 Lymph # (Auto) Route Delivery Driver 03/13/22 04:44 [place] # (Auto) Route Delivery Driver 03/13/22 04:44 Eos # (Auto) Route Delivery Driver 03/13/22 04:44 Baso # (Auto) Route Delivery Driver 03/13/22 04:44 Seg Neutrophils % Route Delivery Driver 03/13/22 04:44 Seg Neutrophils # Route Delivery Driver 03/13/22 04:44 Sodium 139 mmol/L (137-145) 03/13/22 04:44 Potassium 3.9 mmol/L (3.6-5.0) 03/13/22 04:44 Chloride 60.0 mmol/L (98-107) L 03/13/22 04:44 Carbon Dioxide 14 mmol/L (22-30) L D 03/13/22 04:44 Anion Gap 69 mmol/L 03/13/22 04:44 BUN 21 mg/dL (7-17) H 03/13/22 04:44 Creatinine 1.3 mg/dL (0.6-1.2) H 03/13/22 04:44 Estimated GFR 48 ml/min 03/13/22 04:44 BUN/Creatinine Ratio 16 % 03/13/22 04:44 Glucose 129 mg/dL (65-100) H 03/13/22 04:44 Lactic Acid 1.10 mmol/L (0.7-2.0) 03/13/22 00:06 Calcium 8.5 mg/dL (8.4-10.2) 03/13/22 04:44 Total Bilirubin 0.20 mg/dL (0.1-1.2) 03/12/22 17:34 AST 38 units/L (5-40) 03/12/22 17:34 ALT 15 units/L (7-56) 03/12/22 17:34 Alkaline Phosphatase 73 units/L (35-129) 03/12/22 17:34 Troponin T < 0.010 ng/mL (0.00-0.029) 03/12/22 17:34 Total Protein 7.5 g/dL (6.3-8.2) 03/12/22 17:34 Albumin 4.2 g/dL (3.9-5) 03/12/22 17:34 Albumin/Globulin Ratio 1.3 % 03/12/22 17:34 Urine Color Yellow (Yellow) 03/12/22 20:03 Urine Turbidity Clear (Clear) 03/12/22 20:03 Urine pH 5.0 (5.0-7.0) 03/12/22 20:03 Ur Specific [place] 1.025 (1.003-1.030) 03/12/22 20:03 Urine Protein 100 mg/dl mg/dL (Negative) 03/12/22 20:03 Urine Glucose (UA) Neg mg/dL (Negative) 03/12/22 20:03 Urine Ketones Neg mg/dL (Negative) 03/12/22 20:03 Urine Blood Mod (Negative) 03/12/22 20:03 Urine Nitrite Neg (Negative) 03/12/22 20:03 Urine Bilirubin Neg (Negative) 03/12/22 20:03 Urine Urobilinogen < 2.0 mg/dL (<2.0) 03/12/22 20:03 Ur Leukocyte Esterase Mod (Negative) 03/12/22 20:03 Urine WBC (Auto) 21.0 /HPF (0.0-6.0) H 03/12/22 20:03 Urine RBC (Auto) 17.0 /HPF (0.0-6.0) 03/12/22 20:03 U Epithel Cells (Auto) 2.0 /HPF (0-13.0) 03/12/22 20:03 Urine Yeast (Budding) Few /HPF 03/12/22 20:03 Microbiology: Microbiology 03/12/22 20:03 Urine,Clean Catch Urine Culture - Preliminary 03/12/22 17:34 Peripheral/Venous Blood Culture - Preliminary NO GROWTH AFTER 24 HOURS 03/12/22 17:34 Peripheral/Venous Blood Culture - Preliminary NO GROWTH AFTER 24 HOURS [place]/IV: Voiding Method Incontinent Active Medications - Current Medications Current Medications: Generic Name Dose Route Start Last Admin Trade Name Freq PRN Reason Stop Dose Admin Acetaminophen 650 mg 03/12/22 21:18 03/13/22 18:08 Acetaminophen 325 Mg Tab PO 650 mg Q4H PRN Administration Pain MILD(1-3)/Fever >100.5/WILHELM Albuterol 2.5 mg 03/12/22 21:18 Albuterol 2.5 Mg/3 Ml Nebu IH Q3HRT PRN Shortness Of Breath Aspirin 81 mg 03/13/22 10:00 03/14/22 10:54 Aspirin 81 Mg Tab Chew PO 81 mg DAILY JAZLYN Administration Donepezil HCl 10 mg 03/12/22 22:00 03/13/22 21:47 Donepezil 10 Mg Tab PO 10 mg QHS JAZLYN Administration Folic Acid 1 mg 03/14/22 10:00 03/14/22 10:54 Folic Acid 1 Mg Tab PO 1 mg QDAY JAZLYN Administration Heparin Sodium (Porcine) 5,000 unit 03/12/22 22:00 03/14/22 10:54 Heparin 5,000 Unit/1 Ml Vial SUB-Q 5,000 unit Q12HR JAZLYN Administration Hydrochlorothiazide 12.5 mg 03/13/22 10:00 03/14/22 10:53 Hydrochlorothiazide 12.5 Mg Cap PO 12.5 mg DAILY JAZLYN Administration Dextrose/Sodium Chloride 1,000 mls @ 100 mls/hr 03/12/22 22:00 03/14/22 10:57 D5/0.45ns IV 100 mls/hr DIRECT JAZLYN Administration Lacosamide 200 mg 03/13/22 22:00 03/14/22 10:54 Lacosamide 100 Mg Tab PO 200 mg Q12HR JAZLYN Administration Levetiracetam 2,000 mg 03/13/22 22:00 03/14/22 10:54 Levetiracetam 500 Mg Tab PO 2,000 mg BID JAZLYN Administration Lisinopril 20 mg 03/13/22 10:00 03/14/22 11:18 Lisinopril 20 Mg Tab PO 20 mg DAILY JAZLYN Administration Mirtazapine 15 mg 03/12/22 22:00 03/13/22 21:44 Mirtazapine 15 Mg Tab PO 15 mg HS JAZLYN Administration Morphine Sulfate 2 mg 03/12/22 21:18 Morphine 2 Mg/1 Ml Inj IV Q4H PRN Pain, Moderate (4-6) Morphine Sulfate 4 mg 03/12/22 21:18 Morphine 4 Mg/1 Ml Inj IV Q4H PRN Pain , Severe (7-10) Ondansetron HCl 4 mg 03/12/22 21:18 Ondansetron 4 Mg/2 Ml Inj IV Q8H PRN Nausea And Vomiting Pantoprazole Sodium 20 mg 03/14/22 10:00 03/14/22 10:54 Pantoprazole 20 Mg Tab PO 20 mg DAILY JAZLYN Administration Sodium Chloride 10 ml 03/12/22 22:00 03/14/22 11:19 Sodium Chloride 0.9% 10 Ml Flush Syringe IV 10 ml BID JAZLYN Administration Sodium Chloride 10 ml 03/12/22 21:18 Sodium Chloride 0.9% 10 Ml Flush Syringe IV PRN PRN LINE FLUSH
[2022-03-14] MEDS: MIRTAZAPINE 15 MG TAB PO SCH (21:51)
[2022-03-14] MEDS: DONEPEZIL 10 MG TAB PO SCH (21:52)
[2022-03-15] MEDS: D5W/0.45% NACL 1,000 ML IV SCH (05:58)
--- NOTE | 2022-03-15 09:32 | Progress Note ---
Assessment and Plan Assessment and plan: --Sepsis; Criteria; fever, tachycardia, lactic acidosis, UA consistent with UTI and encephalopathy IV fluids, trend lactic acidosis, Zosyn 4.5 g IV every 8 hours. Follow urine and blood cultures --Acute toxic metabolic encephalopathy Metabolic encephalopathy secondary to UTI and dementia. D5 half-normal saline at the rate of 100 cc/h. Zosyn 4.5 g IV every 8 hours. We do the blood culture and urine culture. Recheck CBC BMP in the morning -- UTI (urinary tract infection) Empiric antibiotic Zosyn 4.5 g IV every 8 hours. Follow blood cultures, urine cultures, continue IV fluids Supportive care --Acute kidney injury; Vasomotor nephropathy Gentle hydration, closely monitor renal function, avoid nephrotoxin Consult nephrology if no improvement, renal dosing of medications Renal ultrasound if no improvement -- Hypertension Continue current antihypertensives and as needed hydralazine Closely monitor blood pressures --History of seizure disorder Seizure precautions, continue antiepileptic medications, neurology evaluation if needed Patient would follow-up with private neurologist upon discharge Do not drive until cleared by neurologist -- DVT prophylaxis Heparin 5000 units subcu every 12 hours for DVT prophylaxis. Pepcid 20 mg IV every 12 hours for GI prophylaxis. Patient is a full code Closely monitor the patient and adjust the management as needed Plan of care reviewed with the patient and her nurse History Interval history: I have seen and examined the patient at the bedside Patient's chart and medications reviewed Patient feels slightly better No new complaints Vital signs noted Hospitalist Physical - Constitutional Vitals: Temp Pulse Resp BP Pulse Ox 99.3 F 73 16 148/71 98 03/15/22 05:48 03/15/22 05:48 03/15/22 05:48 03/15/22 05:48 03/15/22 05:48 General appearance: Present: mild distress, well-nourished, other (Afebrile) - EENT Eyes: Present: PERRL, EOM intact - Neck Neck: Present: supple, normal ROM - Respiratory Respiratory effort: normal Respiratory: bilateral: diminished, negative: rales, rhonchi, wheezing - Cardiovascular Rhythm: regular Heart Sounds: Present: S1 & S2 - Extremities Extremities: no ischemia, No edema - Abdominal General gastrointestinal: soft, non-tender, non-distended - Integumentary Integumentary: Present: clear, warm - Psychiatric Psychiatric: appropriate mood/affect, cooperative - Neurologic Neurologic: moves all extremities HEART Score - HEART Score Troponin: Troponin T < 0.010 ng/mL (0.00-0.029) 03/12/22 17:34 Results - Labs CBC & Chem 7: 03/13/22 04:44 03/13/22 04:44 Labs: Laboratory Last Values WBC 10.3 K/mm3 (4.5-11.0) 03/13/22 04:44 RBC 4.11 M/mm3 (3.65-5.03) 03/13/22 04:44 Hgb 11.5 gm/dl (10.1-14.3) 03/13/22 04:44 Hct 38.2 % (30.3-42.9) 03/13/22 04:44 MCV 93 fl (79-97) 03/13/22 04:44 MCH 32 pg (28-32) 03/13/22 04:44 MCHC 34 % (30-34) 03/13/22 04:44 RDW 13.8 % (13.2-15.2) 03/13/22 04:44 Plt Count 135 K/mm3 (140-440) L 03/13/22 04:44 Lymph % (Auto) Pest Management Supervisor 03/13/22 04:44 [place] % (Auto) Pest Management Supervisor 03/13/22 04:44 Eos % (Auto) Pest Management Supervisor 03/13/22 04:44 Baso % (Auto) Pest Management Supervisor 03/13/22 04:44 Lymph # (Auto) Pest Management Supervisor 03/13/22 04:44 [place] # (Auto) Pest Management Supervisor 03/13/22 04:44 Eos # (Auto) Pest Management Supervisor 03/13/22 04:44 Baso # (Auto) Pest Management Supervisor 03/13/22 04:44 Seg Neutrophils % Pest Management Supervisor 03/13/22 04:44 Seg Neutrophils # Pest Management Supervisor 03/13/22 04:44 Sodium 139 mmol/L (137-145) 03/13/22 04:44 Potassium 3.9 mmol/L (3.6-5.0) 03/13/22 04:44 Chloride 60.0 mmol/L (98-107) L 03/13/22 04:44 Carbon Dioxide 14 mmol/L (22-30) L D 03/13/22 04:44 Anion Gap 69 mmol/L 03/13/22 04:44 BUN 21 mg/dL (7-17) H 03/13/22 04:44 Creatinine 1.3 mg/dL (0.6-1.2) H 03/13/22 04:44 Estimated GFR 48 ml/min 03/13/22 04:44 BUN/Creatinine Ratio 16 % 03/13/22 04:44 Glucose 129 mg/dL (65-100) H 03/13/22 04:44 Lactic Acid 1.10 mmol/L (0.7-2.0) 03/13/22 00:06 Calcium 8.5 mg/dL (8.4-10.2) 03/13/22 04:44 Total Bilirubin 0.20 mg/dL (0.1-1.2) 03/12/22 17:34 AST 38 units/L (5-40) 03/12/22 17:34 ALT 15 units/L (7-56) 03/12/22 17:34 Alkaline Phosphatase 73 units/L (35-129) 03/12/22 17:34 Troponin T < 0.010 ng/mL (0.00-0.029) 03/12/22 17:34 Total Protein 7.5 g/dL (6.3-8.2) 03/12/22 17:34 Albumin 4.2 g/dL (3.9-5) 03/12/22 17:34 Albumin/Globulin Ratio 1.3 % 03/12/22 17:34 Urine Color Yellow (Yellow) 03/12/22 20:03 Urine Turbidity Clear (Clear) 03/12/22 20:03 Urine pH 5.0 (5.0-7.0) 03/12/22 20:03 Ur Specific [place] 1.025 (1.003-1.030) 03/12/22 20:03 Urine Protein 100 mg/dl mg/dL (Negative) 03/12/22 20:03 Urine Glucose (UA) Neg mg/dL (Negative) 03/12/22 20:03 Urine Ketones Neg mg/dL (Negative) 03/12/22 20:03 Urine Blood Mod (Negative) 03/12/22 20:03 Urine Nitrite Neg (Negative) 03/12/22 20:03 Urine Bilirubin Neg (Negative) 03/12/22 20:03 Urine Urobilinogen < 2.0 mg/dL (<2.0) 03/12/22 20:03 Ur Leukocyte Esterase Mod (Negative) 03/12/22 20:03 Urine WBC (Auto) 21.0 /HPF (0.0-6.0) H 03/12/22 20:03 Urine RBC (Auto) 17.0 /HPF (0.0-6.0) 03/12/22 20:03 U Epithel Cells (Auto) 2.0 /HPF (0-13.0) 03/12/22 20:03 Urine Yeast (Budding) Few /HPF 03/12/22 20:03 Coronavirus (PCR) Negative (Negative) 03/14/22 11:10 Microbiology: Microbiology 03/12/22 17:34 Peripheral/Venous Blood Culture - Preliminary NO GROWTH AFTER 48 HOURS 03/12/22 17:34 Peripheral/Venous Blood Culture - Preliminary NO GROWTH AFTER 48 HOURS 03/12/22 20:03 Urine,Clean Catch Urine Culture - Preliminary [place]/IV: Voiding Method Diaper Active Medications - Current Medications Current Medications: Generic Name Dose Route Start Last Admin Trade Name Freq PRN Reason Stop Dose Admin Acetaminophen 650 mg 03/12/22 21:18 03/13/22 18:08 Acetaminophen 325 Mg Tab PO 650 mg Q4H PRN Administration Pain MILD(1-3)/Fever >100.5/WILHELM Albuterol 2.5 mg 03/12/22 21:18 Albuterol 2.5 Mg/3 Ml Nebu IH Q3HRT PRN Shortness Of Breath Aspirin 81 mg 03/13/22 10:00 03/14/22 10:54 Aspirin 81 Mg Tab Chew PO 81 mg DAILY JAZLYN Administration Donepezil HCl 10 mg 03/12/22 22:00 03/14/22 21:52 Donepezil 10 Mg Tab PO 10 mg QHS JAZLYN Administration Folic Acid 1 mg 03/14/22 10:00 03/14/22 10:54 Folic Acid 1 Mg Tab PO 1 mg QDAY JAZLYN Administration Heparin Sodium (Porcine) 5,000 unit 03/12/22 22:00 03/14/22 21:52 Heparin 5,000 Unit/1 Ml Vial SUB-Q 5,000 unit Q12HR JAZLYN Administration Hydrochlorothiazide 12.5 mg 03/13/22 10:00 03/14/22 10:53 Hydrochlorothiazide 12.5 Mg Cap PO 12.5 mg DAILY JAZLYN Administration Dextrose/Sodium Chloride 1,000 mls @ 100 mls/hr 03/12/22 22:00 03/15/22 05:58 D5/0.45ns IV 100 mls/hr DIRECT JAZLYN Administration Lacosamide 200 mg 03/13/22 22:00 03/14/22 21:51 Lacosamide 100 Mg Tab PO 200 mg Q12HR JAZLYN Administration Levetiracetam 2,000 mg 03/13/22 22:00 03/14/22 21:51 Levetiracetam 500 Mg Tab PO 2,000 mg BID JAZLYN Administration Lisinopril 20 mg 03/13/22 10:00 03/14/22 11:18 Lisinopril 20 Mg Tab PO 20 mg DAILY JAZLYN Administration Mirtazapine 15 mg 03/12/22 22:00 03/14/22 21:51 Mirtazapine 15 Mg Tab PO 15 mg HS JAZLYN Administration Morphine Sulfate 2 mg 03/12/22 21:18 Morphine 2 Mg/1 Ml Inj IV Q4H PRN Pain, Moderate (4-6) Morphine Sulfate 4 mg 03/12/22 21:18 Morphine 4 Mg/1 Ml Inj IV Q4H PRN Pain , Severe (7-10) Ondansetron HCl 4 mg 03/12/22 21:18 Ondansetron 4 Mg/2 Ml Inj IV Q8H PRN Nausea And Vomiting Pantoprazole Sodium 20 mg 03/14/22 10:00 03/14/22 10:54 Pantoprazole 20 Mg Tab PO 20 mg DAILY JAZLYN Administration Sodium Chloride 10 ml 03/12/22 22:00 03/14/22 21:51 Sodium Chloride 0.9% 10 Ml Flush Syringe IV 10 ml BID JAZLYN Administration Sodium Chloride 10 ml 03/12/22 21:18 Sodium Chloride 0.9% 10 Ml Flush Syringe IV PRN PRN LINE FLUSH
[2022-03-15] MEDS: hydroCHLOROthiazide 12.5 MG CAP PO SCH (10:01)
[2022-03-15] MEDS: ASPIRIN 81 MG TAB CHEW PO SCH (10:01)
[2022-03-15] MEDS: HEPARIN 5,000 UNIT/1 ML VIAL SUB-Q SCH ×2 (10:02→22:22)
[2022-03-15] MEDS: LACOSAMIDE 100 MG TAB PO SCH ×2 (10:02→22:20)
[2022-03-15] MEDS: levETIRAcetam 500 MG TAB PO SCH ×2 (10:02→22:21)
[2022-03-15] MEDS: PANTOPRAZOLE 20 MG TAB PO SCH (10:02)
[2022-03-15] MEDS: FOLIC ACID 1 MG TAB PO SCH (10:02)
[2022-03-15] MEDS: LISINOPRIL 20 MG TAB PO SCH (10:05)
[2022-03-15] MEDS: cefTRIAXone/NS 2 GM/100 ML 2 GM/100 ML BAG IV SCH (10:06)
[2022-03-15] MEDS: DONEPEZIL 10 MG TAB PO SCH (22:21)
[2022-03-15] MEDS: MIRTAZAPINE 15 MG TAB PO SCH (22:21)
[2022-03-16 06:18] LABS: BUN/Creatinine Ratio 13; Blood Urea Nitrogen 10 mg/dL (7-17); Calcium 9.3 mg/dL (8.4-10.2); Hemolysis Index 4
[2022-03-16] MEDS: ASPIRIN 81 MG TAB CHEW PO SCH (09:54)
[2022-03-16] MEDS: LACOSAMIDE 100 MG TAB PO SCH ×2 (09:54→22:23)
[2022-03-16] MEDS: hydroCHLOROthiazide 12.5 MG CAP PO SCH (09:54)
[2022-03-16] MEDS: LISINOPRIL 20 MG TAB PO SCH (09:54)
[2022-03-16] MEDS: FOLIC ACID 1 MG TAB PO SCH (09:55)
[2022-03-16] MEDS: levETIRAcetam 500 MG TAB PO SCH ×2 (09:55→22:28)
[2022-03-16] MEDS: PANTOPRAZOLE 20 MG TAB PO SCH (09:55)
[2022-03-16] MEDS: HEPARIN 5,000 UNIT/1 ML VIAL SUB-Q SCH ×2 (09:56→22:29)
[2022-03-16] MEDS: cefTRIAXone/NS 2 GM/100 ML 2 GM/100 ML BAG IV SCH (09:59)
--- NOTE | 2022-03-16 20:42 | Progress Note ---
Assessment and Plan Assessment and plan: --Sepsis; Criteria; fever, tachycardia, lactic acidosis, UA consistent with UTI and encephalopathy IV fluids, trend lactic acidosis, Zosyn 4.5 g IV every 8 hours. Follow urine and blood cultures --Acute toxic metabolic encephalopathy Metabolic encephalopathy secondary to UTI and dementia. D5 half-normal saline at the rate of 100 cc/h. Zosyn 4.5 g IV every 8 hours. We do the blood culture and urine culture. Recheck CBC BMP in the morning -- UTI (urinary tract infection) Empiric antibiotic Zosyn 4.5 g IV every 8 hours. Follow blood cultures, urine cultures, continue IV fluids Supportive care --Acute kidney injury; Vasomotor nephropathy Gentle hydration, closely monitor renal function, avoid nephrotoxin Consult nephrology if no improvement, renal dosing of medications Renal ultrasound if no improvement -- Hypertension Continue current antihypertensives and as needed hydralazine Closely monitor blood pressures --History of seizure disorder Seizure precautions, continue antiepileptic medications, neurology evaluation if needed Patient would follow-up with private neurologist upon discharge Do not drive until cleared by neurologist -- DVT prophylaxis Heparin 5000 units subcu every 12 hours for DVT prophylaxis. Pepcid 20 mg IV every 12 hours for GI prophylaxis. Patient is a full code Closely monitor the patient and adjust the management as needed Plan of care reviewed with the patient and her nurse 03/16/2022; continue Rocephin, follow cultures Possible discharge in 1 to 2 days if stable History Interval history: I have seen and examined the patient at the bedside Patient's chart and medications reviewed Patient is chronically ill looking cachectic minimally communicative Vital signs noted Hospitalist Physical - Constitutional Vitals: Temp Pulse Resp BP Pulse Ox 97.7 F 99 H 16 160/69 98 03/16/22 17:55 03/16/22 17:55 03/16/22 17:55 03/16/22 17:55 03/16/22 19:26 General appearance: Present: mild distress, well-nourished, other (Afebrile) - EENT Eyes: Present: PERRL, EOM intact - Neck Neck: Present: supple, normal ROM - Respiratory Respiratory effort: normal Respiratory: bilateral: diminished, negative: rales, rhonchi, wheezing - Cardiovascular Rhythm: regular Heart Sounds: Present: S1 & S2 - Extremities Extremities: no ischemia, No edema - Abdominal General gastrointestinal: soft, non-tender, non-distended, normal bowel sounds - Integumentary Integumentary: Present: clear, warm - Psychiatric Psychiatric: appropriate mood/affect, cooperative, other (Confused at times) - Neurologic Neurologic: moves all extremities HEART Score - HEART Score Troponin: Troponin T < 0.010 ng/mL (0.00-0.029) 03/12/22 17:34 Results - Labs CBC & Chem 7: 03/13/22 04:44 03/16/22 05:07 Labs: Laboratory Last Values WBC 10.3 K/mm3 (4.5-11.0) 03/13/22 04:44 RBC 4.11 M/mm3 (3.65-5.03) 03/13/22 04:44 Hgb 11.5 gm/dl (10.1-14.3) 03/13/22 04:44 Hct 38.2 % (30.3-42.9) 03/13/22 04:44 MCV 93 fl (79-97) 03/13/22 04:44 MCH 32 pg (28-32) 03/13/22 04:44 MCHC 34 % (30-34) 03/13/22 04:44 RDW 13.8 % (13.2-15.2) 03/13/22 04:44 Plt Count 135 K/mm3 (140-440) L 03/13/22 04:44 Lymph % (Auto) Health Information Coder 03/13/22 04:44 Stone % (Auto) Health Information Coder 03/13/22 04:44 Eos % (Auto) Health Information Coder 03/13/22 04:44 Baso % (Auto) Health Information Coder 03/13/22 04:44 Lymph # (Auto) Health Information Coder 03/13/22 04:44 Stone # (Auto) Health Information Coder 03/13/22 04:44 Eos # (Auto) Health Information Coder 03/13/22 04:44 Baso # (Auto) Health Information Coder 03/13/22 04:44 Seg Neutrophils % Health Information Coder 03/13/22 04:44 Seg Neutrophils # Health Information Coder 03/13/22 04:44 Sodium 142 mmol/L (137-145) 03/16/22 05:07 Potassium 3.8 mmol/L (3.6-5.0) 03/16/22 05:07 Chloride 103.1 mmol/L (98-107) 03/16/22 05:07 Carbon Dioxide 27 mmol/L (22-30) D 03/16/22 05:07 Anion Gap 16 mmol/L 03/16/22 05:07 BUN 10 mg/dL (7-17) 03/16/22 05:07 Creatinine 0.8 mg/dL (0.6-1.2) 03/16/22 05:07 Estimated GFR > 60 ml/min 03/16/22 05:07 BUN/Creatinine Ratio 13 % 03/16/22 05:07 Glucose 99 mg/dL (65-100) 03/16/22 05:07 Lactic Acid 1.10 mmol/L (0.7-2.0) 03/13/22 00:06 Calcium 9.3 mg/dL (8.4-10.2) 03/16/22 05:07 Magnesium 2.10 mg/dL (1.7-2.3) 03/16/22 05:07 Total Bilirubin 0.20 mg/dL (0.1-1.2) 03/12/22 17:34 AST 38 units/L (5-40) 03/12/22 17:34 ALT 15 units/L (7-56) 03/12/22 17:34 Alkaline Phosphatase 73 units/L (35-129) 03/12/22 17:34 Troponin T < 0.010 ng/mL (0.00-0.029) 03/12/22 17:34 Total Protein 7.5 g/dL (6.3-8.2) 03/12/22 17:34 Albumin 4.2 g/dL (3.9-5) 03/12/22 17:34 Albumin/Globulin Ratio 1.3 % 03/12/22 17:34 Urine Color Yellow (Yellow) 03/12/22 20:03 Urine Turbidity Clear (Clear) 03/12/22 20:03 Urine pH 5.0 (5.0-7.0) 03/12/22 20:03 Ur Specific [place] 1.025 (1.003-1.030) 03/12/22 20:03 Urine Protein 100 mg/dl mg/dL (Negative) 03/12/22 20:03 Urine Glucose (UA) Neg mg/dL (Negative) 03/12/22 20:03 Urine Ketones Neg mg/dL (Negative) 03/12/22 20:03 Urine Blood Mod (Negative) 03/12/22 20:03 Urine Nitrite Neg (Negative) 03/12/22 20:03 Urine Bilirubin Neg (Negative) 03/12/22 20:03 Urine Urobilinogen < 2.0 mg/dL (<2.0) 03/12/22 20:03 Ur Leukocyte Esterase Mod (Negative) 03/12/22 20:03 Urine WBC (Auto) 21.0 /HPF (0.0-6.0) H 03/12/22 20:03 Urine RBC (Auto) 17.0 /HPF (0.0-6.0) 03/12/22 20:03 U Epithel Cells (Auto) 2.0 /HPF (0-13.0) 03/12/22 20:03 Urine Yeast (Budding) Few /HPF 03/12/22 20:03 Coronavirus (PCR) Negative (Negative) 03/14/22 11:10 Microbiology: Microbiology 03/12/22 17:34 Peripheral/Venous Blood Culture - Preliminary NO GROWTH AFTER 72 HOURS 03/12/22 17:34 Peripheral/Venous Blood Culture - Preliminary NO GROWTH AFTER 72 HOURS [place]/IV: Voiding Method External Female Catheter Active Medications - Current Medications Current Medications: Generic Name Dose Route Start Last Admin Trade Name Freq PRN Reason Stop Dose Admin Acetaminophen 650 mg 03/12/22 21:18 03/13/22 18:08 Acetaminophen 325 Mg Tab PO 650 mg Q4H PRN Administration Pain MILD(1-3)/Fever >100.5/WILHELM Albuterol 2.5 mg 03/12/22 21:18 Albuterol 2.5 Mg/3 Ml Nebu IH Q3HRT PRN Shortness Of Breath Aspirin 81 mg 03/13/22 10:00 03/16/22 09:54 Aspirin 81 Mg Tab Chew PO 81 mg DAILY JAZLYN Administration Donepezil HCl 10 mg 03/12/22 22:00 03/15/22 22:21 Donepezil 10 Mg Tab PO 10 mg QHS JAZLYN Administration Folic Acid 1 mg 03/14/22 10:00 03/16/22 09:55 Folic Acid 1 Mg Tab PO 1 mg QDAY JAZLYN Administration Heparin Sodium (Porcine) 5,000 unit 03/12/22 22:00 03/16/22 09:56 Heparin 5,000 Unit/1 Ml Vial SUB-Q 5,000 unit Q12HR JAZLYN Administration Hydrochlorothiazide 12.5 mg 03/13/22 10:00 03/16/22 09:54 Hydrochlorothiazide 12.5 Mg Cap PO 12.5 mg DAILY JAZLYN Administration Dextrose/Sodium Chloride 1,000 mls @ 100 mls/hr 03/12/22 22:00 03/15/22 05:58 D5/0.45ns IV 100 mls/hr DIRECT JAZLYN Administration Ceftriaxone Sodium 2 gm in 100 mls @ 200 mls/hr 03/15/22 10:00 03/16/22 09:59 Rocephin/Ns 2 Gm/100 Ml IV 200 mls/hr Q24H JAZLYN Administration Protocol Lacosamide 200 mg 03/13/22 22:00 03/16/22 09:54 Lacosamide 100 Mg Tab PO 200 mg Q12HR JAZLYN Administration Levetiracetam 2,000 mg 03/13/22 22:00 03/16/22 09:55 Levetiracetam 500 Mg Tab PO 2,000 mg BID JAZLYN Administration Lisinopril 20 mg 03/13/22 10:00 03/16/22 09:54 Lisinopril 20 Mg Tab PO 20 mg DAILY JAZLYN Administration Mirtazapine 15 mg 03/12/22 22:00 03/15/22 22:21 Mirtazapine 15 Mg Tab PO 15 mg HS JAZLYN Administration Morphine Sulfate 2 mg 03/12/22 21:18 Morphine 2 Mg/1 Ml Inj IV Q4H PRN Pain, Moderate (4-6) Morphine Sulfate 4 mg 03/12/22 21:18 Morphine 4 Mg/1 Ml Inj IV Q4H PRN Pain , Severe (7-10) Ondansetron HCl 4 mg 03/12/22 21:18 Ondansetron 4 Mg/2 Ml Inj IV Q8H PRN Nausea And Vomiting Pantoprazole Sodium 20 mg 03/14/22 10:00 03/16/22 09:55 Pantoprazole 20 Mg Tab PO 20 mg DAILY JAZLYN Administration Sodium Chloride 10 ml 03/12/22 22:00 03/16/22 09:56 Sodium Chloride 0.9% 10 Ml Flush Syringe IV 10 ml BID JAZLYN Administration Sodium Chloride 10 ml 03/12/22 21:18 Sodium Chloride 0.9% 10 Ml Flush Syringe IV PRN PRN LINE FLUSH Nutrition/Malnutrition Assess - Dietary Evaluation Nutrition/Malnutrition Findings: Nutrition Notes Start: 03/16/22 18:15 Freq: Status: Active Protocol: Document 03/16/22 18:15 EVELINE (Rec: 03/16/22 18:41 EVELINE [id number]) Nutrition Notes Need for Assessment generated from: MD Order Initial or Follow up Assessment Current Diagnosis Sepsis,Hypertension Other Pertinent Diagnosis UTI, Metabolic Encephalopathy, Dementia, Seizure. Current Diet Cardiac Diet (since B 03/12), D Suppl (since D 03/16). Labs/Tests 03/16: WNL. Pertinent Medications : D5/0.45ns 1000 ml @ 100 ml/hr, Folic acid, others nutritionally unremarkable. 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 Weight Status Appropriate Subjective/Other Information RD consult for Dietary Supplementation assessment. Pt's PO intake of meals has been Negligible (<25%), according to ADL notes. I will prescribe mechanical modification to facilitate chewing since Pt has missing teeth, probably affecting PO intake of meals. I will prescribe Dietary Supplementation to compensate for Poor PO or insufficient intake of meals. Pt is on Nasal Cannula, O2 saturation @ 99%, according to Physical Assessment History notes. Pt is missingh teeth, according to Physical Assessment History notes. Pt will return to her SNF after discharge, according to Progress notes. Percent of energy/protein needs met: Prescribed Cardiac Diet provides for energy/protein needs (2,230 Kcal/85 g) during LOS; additionally, Dietary Supplements will compensate for possible poor or insufficient PO intake of meals with 1,050 Kcal and 60 g of protein. Burn Absent Trauma Absent GI Symptoms None Food Allergy No Skin Integrity/Comment Assessment WNL. Current % PO Negligible Minimum of two criteria No Fluid Accumulation N/A Reduced Product Distribution Specialist Strength N/A (non-severe) Protein-Calorie Malnutrition N\A #2 Nutrition Diagnosis Biting/Chewing (masticatory) difficulty Etiology Missing teeth. As Evidenced by Signs and Symptoms Pt's PO intake of meals has been Negligible (<25%), according to ADL notes. #1 Nutrition Diagnosis Inadequate protein-energy intake Etiology Uncertain. As Evidenced by Signs and Symptoms Pt's PO intake of meals has been Negligible (<25%), according to ADL notes. Is patient on ventilator? No Is Patient Ambulatory and/or Out of Bed No REE-([place]-[facility]. Jeor-confined to bed) 1162.668 Kcal/Kg value to use for calculation 24 Approximate Energy Requirements Using 1260 kcal/Kg Calculation Used for Recommendations Kcal/kg Additional Notes Protein: 1-1.2 g/Kg ABW; 53-64 g/day. Fluids: 1 ml/Kcal, or as per MD. Nutrition Intervention Change Diet Order: Continue Cardiac -Chopped Meats- Diet. Add Supplement/Snack (indicate name/kcal Start 8 fl oz Ensure Enlive; /protein ) TID. Provides kCal: 1,050 Provides Protein (gm) 60 Goal #1 Compensate, through dietary supplementation, for possible poor or insufficient PO intake of meals during LOS. Goal #2 Facilitate PO intake of meals with elemental, textural, or mechanical modification during LOS. Goal #3 Maintain body weight within +/ -3% of admission body weight during LOS. Follow-Up By: 03/23/22 Additional Comments Continue monitoring food tolerance, %PO intake of meals , and BM.
[2022-03-16] MEDS: MIRTAZAPINE 15 MG TAB PO SCH (22:22)
[2022-03-16] MEDS: DONEPEZIL 10 MG TAB PO SCH (22:22)
[2022-03-17] MEDS ORDERED: levETIRAcetam 500 MG/5 ML ORAL LIQD PO SCH (10:00)
[2022-03-17] MEDS: cefTRIAXone/NS 2 GM/100 ML 2 GM/100 ML BAG IV SCH (10:14)
[2022-03-17] MEDS: PANTOPRAZOLE 20 MG TAB PO SCH (10:18)
[2022-03-17] MEDS: ASPIRIN 81 MG TAB CHEW PO SCH (10:18)
[2022-03-17] MEDS: LACOSAMIDE 100 MG TAB PO SCH (10:18)
[2022-03-17] MEDS: LISINOPRIL 20 MG TAB PO SCH (10:18)
[2022-03-17] MEDS: HEPARIN 5,000 UNIT/1 ML VIAL SUB-Q SCH (10:19)
[2022-03-17] MEDS: hydroCHLOROthiazide 12.5 MG CAP PO SCH (10:19)
[2022-03-17] MEDS: FOLIC ACID 1 MG TAB PO SCH (10:19)
--- NOTE | 2022-03-17 11:19 | Discharge Summary ---
Providers - Providers Date of Admission: 03/12/22 21:19 Date of discharge: 03/17/22 Attending physician: JACINTO CHANDLER 03/15/22 19:25 Physical Therapy Evaluation and Treat [CONS] Routine Comment: Reason For Exam: General debility/evaluate and treat/DC needs Primary care physician: [employer] Hospitalization Reason for admission: Fever, weakness, altered level of consciousness[metabolic encephalopathy] Condition: Stable Pertinent studies: Chest x-ray no acute abnormality noted CT head; no focal mass hemorrhage hydrocephalus , no acute CVA Hospital course: 77-year-old female patient with significant past medical history of hypertension dementia, seizure disorder was [facility] because of fever and generalized weakness and altered level of consciousness in the emergency room patient was noted to have lactic acidosis and work-up is con sistent with urinary tract infection patient was also mildly confused probably secondary to UTI and dementia.Patient was admitted to the hospital started on IV fluids empiric antibiotics blood and urine cultures were sent and patient received total 5 days of antibiotics for sepsis due to urinary tract infection Patient symptoms slowly but gradually improved CT head without contrast no acute abnormality noted Today patient is comfortable, no new complaints, vital signs stable hemodynamically and clinically stable at discharge patient received total 5 days of antibiotics 7 improvement of symptoms Mental status back to baseline according to family and patient is stable at discharge Discharge diagnosis: --Sepsis; due to UTI: Criteria; fever, tachycardia, lactic acidosis, UA consistent with UTI and encephalopathy --Acute toxic metabolic encephalopathy Metabolic encephalopathy secondary to UTI and dementia. -- UTI (urinary tract infection) Received total 5 days of antibiotics, symptoms resolved --Acute kidney injury; resolved -- Hypertension/ --History of seizure disorder Seizure precautions, continue antiepileptic medications, -- DVT prophylaxis Heparin 5000 units subcu every 12 hours for DVT prophylaxis. Pepcid 20 mg IV every 12 hours for GI prophylaxis. Patient is a full code Patient is evaluated by hospice per family's request Patient is being discharged home with hospice, and home health and equipment Stable at discharge. Disposition: 50 HOSPICE/HOME Final Discharge Diagnosis (Prints w/discharge instructions): Sepsis secondary to urinary tract infection. Acute toxic metabolic encephalopathy due to UTI resolved. Urinary tract infection on antibiotics. Acute kidney injury vasomotor nephropathy resolved. Hypertension well controlled. History of seizure disorder stable. COVID-19 negative Time spent for discharge: 35 min Core Measure Documentation - Palliative Care Palliative Care/ Comfort Measures: Hospice Care - Core Measures Any of the following diagnoses?: none Exam - Constitutional Vitals: Temp Pulse Resp BP Pulse Ox 97.8 F 86 18 129/65 98 03/17/22 05:18 03/17/22 10:18 03/17/22 05:18 03/17/22 10:18 03/17/22 07:19 General appearance: Present: no acute distress, well-nourished - EENT Eyes: Present: PERRL, EOM intact - Neck Neck: Present: supple, normal ROM - Respiratory Respiratory effort: normal Respiratory: bilateral: diminished, negative: rales, rhonchi, wheezing - Cardiovascular Rhythm: regular Heart Sounds: Present: S1 & S2 - Extremities Extremities: no ischemia, No edema - Abdominal General gastrointestinal: Present: soft, non-tender, non-distended, normal bowel sounds - Integumentary Integumentary: Present: clear, warm - Musculoskeletal Musculoskeletal: generalized weakness - Psychiatric Psychiatric: cooperative, other (Confused at time) - Neurologic Neurologic: moves all extremities Plan Activity: advance as tolerated, fall precautions Diet: other (Mechanical soft diet, nutrition supplements Ensure 1 can 3 times a day) Additional Instructions: If you have worsening symptoms contact MD or go to the nearest emergency room as needed. Fall precautions. Aspiration precautions. Follow-up primary care physician in 1 week Follow up with: PRIMARY CARE,MD [Primary Care Provider] - 7 Days Prescriptions: donepeziL [Aricept] 10 mg PO QHS #30 tablet Aspirin [Aspirin BABY CHEW TAB] 81 mg PO DAILY #30 tab.chew Folic Acid [Folvite] 1 mg PO QDAY #30 hydroCHLOROthiazide [HCTZ] 12.5 mg PO DAILY #30 capsule levETIRAcetam [Keppra TAB] 2,000 mg PO BID #60 Pantoprazole Sodium 20 mg PO DAILY #60 Mirtazapine [Remeron 15mg TAB] 15 mg PO HS #10 tablet Lacosamide [Vimpat] 200 mg PO Q2HR #60 lisinopriL [Zestril TAB] 20 mg PO DAILY #20 tablet
[2022-03-17 13:26] VITALS: BP 112/59
== END 2022-03-17 14:15 | disposition hospice, home (50) | DRG 871 ==
LOC: ED 16:52 → 3A 21:19
PROVIDERS: ADMIT Hospitalist; ATTEND Internal Medicine
DX: A41.89 Other specified sepsis (principal); G92.8 Other toxic encephalopathy; N17.0 Acute kidney failure with tubular necrosis; N39.0 Urinary tract infection, site not specified; I10 Essential (primary) hypertension; F03.90 Unspecified dementia, unspecified severity, without behavioral disturbance, psychotic disturbance, mood disturbance, and anxiety; G40.909 Epilepsy, unspecified, not intractable, without status epilepticus; Z20.822 Contact with and (suspected) exposure to COVID-19; Z82.49 Family history of ischemic heart disease and other diseases of the circulatory system
CPT/HCPCS: 36415; 70450; 71045; 80048; 80053; 81001; 82140; 83735; 84484; 85025; 87040; 87086; 93005; 94640; 94760; G0378; J3490; J7070; J0696; J1644; J2543; J7030; U0003